=== PATIENT | male | born 1945 | race Caucasian/White ===

== ENCOUNTER 2018-06-16 13:00 | Day surgery (SDC) | payer MEDICARE, OTHER ==
[~2018-06-16] VITALS: Ht 177.8 cm; Wt 103.9 kg
[~2018-06-16 13:00] MED LIST: CEPH500 PO; Calci-Mix500 MG PO; ENAL20 PO; Humalog Mi100 UNIT/5 INJ; Hytrin2 MG PO; INSLI75/25 SC; METF500 PO; Multivitamin1 EAC1 PO; OXYACE5T PO; Omeprazole20 M1 PO; PIOG45 PO; ROSI4 PO; ROSU10TA PO; RXSULTRIDS PO; SULTRIDS PO; TERA5 PO
== END 2018-06-16 15:07 | disposition home or self-care (01) ==
LOC: ORSCSDS 13:00
PROVIDERS: Surgery
PROC: 0DBN8ZX Excision of Sigmoid Colon, Via Natural or Artificial Opening Endoscopic, Diagnostic (ICD-10-PCS; principal; 2018-06-16 14:15)
PROC: 0DBL8ZX Excision of Transverse Colon, Via Natural or Artificial Opening Endoscopic, Diagnostic (ICD-10-PCS; principal; 2018-06-16 14:15)
PROC: 0DBH8ZX Excision of Cecum, Via Natural or Artificial Opening Endoscopic, Diagnostic (ICD-10-PCS; principal; 2018-06-16 14:15)
DX: Z12.11 Encounter for screening for malignant neoplasm of colon (principal); K63.5 Polyp of colon; Z86.010 Personal history of colon polyps; E11.9 Type 2 diabetes mellitus without complications; I10 Essential (primary) hypertension; E78.00 Pure hypercholesterolemia, unspecified; N40.0 Benign prostatic hyperplasia without lower urinary tract symptoms; Z79.4 Long term (current) use of insulin; Z79.899 Other long term (current) drug therapy
CPT/HCPCS: 82947; 88305; J7120

== ENCOUNTER 2023-01-21 13:20 | Inpatient (IN) | payer MEDICARE, OTHER ==
[2023-01-21] VITALS (17 sets, daily range): BP systolic 113–151; BP diastolic 55–98
[~2023-01-21] VITALS: Ht 177.8 cm; Wt 70.3 kg
[~2023-01-21 13:20] MED LIST changes: +BASAGLAR K100 UNIT/3 SC; +ENAL10 PO; -ENAL20 PO; -Humalog Mi100 UNIT/5 INJ
[2023-01-21 14:17] LABS: Prothrombin Time Results 10.5 Sec (9.7-11.5)
[2023-01-21 14:21] LABS: BASOPHILS ABSOLUTE AUTO 0.06 K/mm3 (0.00-0.23); BASOPHILS PERCENT AUTO 0 % (0-2); EOSINOPHILS ABSOLUTE AUTO 0.01 K/mm3 (0.00-0.68); EOSINOPHILS PERCENT AUTO 0 % (0-6); Hematocrit 27.8 % (37.0-53.0); Hemoglobin 8.3 g/dL (13.5-17.5); IMMATURE GRAN ABSOLUTE AUTO 0.09 K/mm3 (0.00-0.10); IMMATURE GRAN PERCENT AUTO 1 % (0-1); LYMPHOCYTES ABSOLUTE AUTO 2.35 K/mm3 (0.84-5.20); LYMPHOCYTES PERCENT AUTO 14 % (21-46); MONOCYTES ABSOLUTE AUTO 0.85 K/mm3 (0.16-1.47); MONOCYTES PERCENT AUTO 5 % (4-13); Mean Corpuscular HGB 29.5 pg (26.0-34.0); Mean Corpuscular HGB Conc 29.9 g/dL (31.5-36.5); Mean Corpuscular Volume 99 fL (80-100); Mean Platelet Volume 10.5 fL (9.1-12.4); NEUTROPHILS ABSOLUTE AUTO 14.08 K/mm3 (1.96-9.15); NEUTROPHILS PERCENT AUTO 81 % (41-73); Platelet Count 274 K/mm3 (150-400); RDW Coefficient Variation 13.8 % (11.7-14.2); RDW Standard Deviation 50.4 fL (35.1-46.3); Red Blood Cell Count 2.81 M/mm3 (4.30-5.90); White Blood Cell Count 17.44 K/mm3 (4.00-11.30)
[2023-01-21 14:49] LABS: Albumin, Blood 3.4 g/dL (3.4-5.0); Albumin/Globulin Ratio 1.1 (0.8-1.8); Bilirubin, Total 0.5 mg/dL (0.1-1.0); Bun/Creatinine Ratio 14.8 (12.0-20.0); Calcium, Blood 9.3 mg/dL (8.5-10.1); Creatinine, Blood 12.4 mg/dL (0.60-1.20); Globulin, Blood 3.2 g/dL (2.2-4.0); Potassium, Blood 9.6 mmol/L (3.5-5.5); Total Protein, Blood 6.6 g/dL (6.4-8.2)
[2023-01-21 15:43] LABS: Bun/Creatinine Ratio 13.7 (12.0-20.0); Calcium, Blood 9.3 mg/dL (8.5-10.1); Creatinine, Blood 12.3 mg/dL (0.60-1.20); Potassium, Blood 9.5 mmol/L (3.5-5.5)
[2023-01-21 18:01] LABS: Albumin, Blood 2.7 g/dL (3.4-5.0); Anion Gap 14 mmol/L (6-16); Blood Urea Nitrogen 148 mg/dL (8-24); Bun/Creatinine Ratio 13.7 (12.0-20.0); CO2, Blood 11 mmol/L (21-32); Calcium, Blood 9.1 mg/dL (8.5-10.1); Chloride, Blood 122 mmol/L (98-108); Glomerular Filtration Rate 4 (60-); Glucose, Blood 225 mg/dL (70-99); Phosphorus, Blood 4.1 mg/dL (2.5-4.9); Sodium, Blood 147 mmol/L (136-145)
--- NOTE | 2023-01-21 18:50 | NUR ---
DR. ROSA INFORMED OF LAB RESULTS; MAG OF 9.3, POTASSIUM OF 7.0 AND CREATININE OF 10.8. INFORMED THAT PATIENT VOIDED 50 MLS OF URINE AND THEN BLADDER SCANNED. INFORMED BLADDER SCAN SHOWED 312 MLS OF URINE IN BLADDER. DR. ROSA STATED TO WAIT ON PLACING ADAMS AND TO DO BLADDER SCAN AT NEXT LABS.
--- NOTE | 2023-01-21 19:32 | NUR ---
SHIFT SUMMARY PATIENT ARRIVED TO UNIT AROUND 1800. PATIENT ALERT AND ORIENTED TO ALL QUESTIONS EXCEPT TO DATE. PATIENT IS FORGETFUL AND TRIES TO GET OUT OF BED WITHOUT USING CALL LIGHT OR CALLING FOR HELP. BED ALARM ON. PATIENT WEAK AND UNSTEADY ON FEET WITH STANDING UP. PATIENT AFEBRILE. PATIENT SATTING 90% AND GREATER ON RA. BP AND HR REMAINED STABLE. PATIENT ATE CUSTARD AND FRUIT CUP OFF DINNER TRAY. NO BM THIS SHIFT. PATIENT HAS HAD 2 SMALL VOIDS THIS SHIFT. PATIENT NEEDS ASSISTANCE WITH URINAL. 1" LACERATION TO BACK OF HEAD. SMALL PRESSURE ULCER NOTED TO COCCYX. SODIUM BICARB INFUSING AT 150 MLS/ HOUR. AND SON CAME TO VISIT. BED LOW, CALL LIGHT IN REACH, BED ALARM ON. REPORT GIVEN TO ASSUMING SPECIAL EDUCATION CLASSROOM AIDE NURSE.
--- NOTE | 2023-01-21 21:06 | NUR ---
PATIENT RESTLESS AND CONFUSED. NEEDING FREQUENT REMINDERS TO USE CALL LIGHT FOR HELP WITH URINAL. PATIENT HAVING FREQUENT REQUEST FOR URINAL, BLADDER SCAN DONE SHOWING 362 URINE AFTER VOIDING 100 CC URINE. DRESSING TO HEAD WITH SMALL AMT OF DRIED BLOOD. ORIENT TO SELF AND HOSPITAL ONLY. TREMOR SEEN WITH ACTIVITY. PATIENT VERBALIZED FEELING COLD
[2023-01-21 21:54] LABS: Albumin, Blood 2.8 g/dL (3.4-5.0); Anion Gap 11 mmol/L (6-16); Blood Urea Nitrogen 168 mg/dL (8-24); Bun/Creatinine Ratio 14.5 (12.0-20.0); CO2, Blood 17 mmol/L (21-32); Calcium, Blood 8.9 mg/dL (8.5-10.1); Chloride, Blood 123 mmol/L (98-108); Glomerular Filtration Rate 4 (60-); Glucose, Blood 268 mg/dL (70-99); Phosphorus, Blood 4.5 mg/dL (2.5-4.9); Potassium, Blood 6.4 mmol/L (3.5-5.5); Sodium, Blood 151 mmol/L (136-145)
--- NOTE | 2023-01-21 22:12 | NUR ---
DOCTOR MOE NOTIFIED OF REPEAT LABS AND RESULT OF POST VOID BLADDER SCAN OF 296. SEE NEW ORDERS
[2023-01-21 23:43] LABS: Source, Urine Foley catheter
[2023-01-21 23:48] LABS: Bilirubin, Urine Neg (Neg); Blood, Urine 2+ (Neg); Glucose Qualitative, Urine 3+ (Neg); Ketones, Urine Neg (Neg); Leukocyte Esterase, Urine Neg (Neg); Nitrite, Urine Neg (Neg); Protein, Urine 2+ (Neg); Urobilinogen, Urine NORM (Normal)
[2023-01-21 23:50] LABS: Appearance, Urine Clear (Clear); Color, Urine Pale Yellow (P-Yellow)
[2023-01-22] VITALS (45 sets, daily range): BP systolic 85–152; BP diastolic 40–92
[2023-01-22 00:10] LABS: Bacteria Not Seen /hpf; Red Blood Cells, Urine 0-2 /hpf (0-2); Squamous Epithelial Cells Not Seen /hpf (Few); White Blood Cells, Urine 0-2 /hpf (0-5)
[2023-01-22 04:06] LABS: BASOPHILS ABSOLUTE AUTO 0.02 K/mm3 (0.00-0.23); BASOPHILS PERCENT AUTO 0 % (0-2); EOSINOPHILS ABSOLUTE AUTO 0.02 K/mm3 (0.00-0.68); EOSINOPHILS PERCENT AUTO 0 % (0-6); Hemoglobin 7.5 g/dL (13.5-17.5); IMMATURE GRAN ABSOLUTE AUTO 0.06 K/mm3 (0.00-0.10); IMMATURE GRAN PERCENT AUTO 1 % (0-1); LYMPHOCYTES PERCENT AUTO 15 % (21-46); MONOCYTES PERCENT AUTO 9 % (4-13); Mean Corpuscular HGB 29.3 pg (26.0-34.0); Mean Corpuscular HGB Conc 32.6 g/dL (31.5-36.5); Mean Platelet Volume 10.4 fL (9.1-12.4); NEUTROPHILS ABSOLUTE AUTO 7.66 K/mm3 (1.96-9.15); NEUTROPHILS PERCENT AUTO 75 % (41-73); Platelet Count 227 K/mm3 (150-400); RDW Coefficient Variation 13.6 % (11.7-14.2); RDW Standard Deviation 45.1 fL (35.1-46.3); Red Blood Cell Count 2.56 M/mm3 (4.30-5.90); White Blood Cell Count 10.16 K/mm3 (4.00-11.30)
[2023-01-22 04:09] LABS: Mean Corpuscular Volume 90 fL (80-100)
[2023-01-22 04:43] LABS: Uric Acid, Blood 7.1 mg/dL (3.5-7.2)
[2023-01-22 04:52] LABS: Albumin, Blood 2.6 g/dL (3.4-5.0); Anion Gap 11 mmol/L (6-16); Blood Urea Nitrogen 142 mg/dL (8-24); Bun/Creatinine Ratio 12.7 (12.0-20.0); CO2, Blood 22 mmol/L (21-32); Calcium, Blood 8.3 mg/dL (8.5-10.1); Chloride, Blood 118 mmol/L (98-108); Glomerular Filtration Rate 4 (60-); Glucose, Blood 272 mg/dL (70-99); Magnesium, Blood 2.3 mg/dL (1.6-2.4); Phosphorus, Blood 4.2 mg/dL (2.5-4.9); Potassium, Blood 5.1 mmol/L (3.5-5.5); Sodium, Blood 151 mmol/L (136-145)
--- NOTE | 2023-01-22 05:24 | NUR ---
DOCTOR MOE NOTIFIED OF AM LABS, SEE NEW ORDERS. IV FLUIDS ADJUSTED AND PLAN ON REPEAT LABS AT NOON TODAY
--- NOTE | 2023-01-22 06:48 | NUR ---
SUMMARY PATIENT CONFUSED T/O NIGHT. VERY FORGETFUL AND IMPULSIVE T/O NIGHT. 1:1 SITTER AT ROOM THIS MORNING TO HELP KEEP PATIENT FROM PULLING AT LINES AND CORDS AND ATTEMPTING TO GET OUT OF BED WITHOUT ASSISTANCE. ADAMS REMAINS IN PLACE DRAINING CLEAR YELLOW URINE 24 HR URINE IN PROGRESS. IV FLUID ORDERS PER DOCTOR MOE. INCONT OF BLACK LIQUID STOOL DURING THE NIGHT.
--- NOTE | 2023-01-22 08:00 | NUR ---
INITIAL ASSESSMENT PATIENT ORIENTED ONLY TO SELF AND FAMILY THIS AM. FLAT AFFECT NOTED. PATIENT VERY FORGETFUL. SITTER PRESENT PATIENT TRIES TO CLIMB OUT OF BED AND DOES NOT REMEMBER TO CALL FOR HELP. PATIENT WEAK BUT ABLE TO MOVE ALL EXTREMITIES. PATIENT AFEBRILE. NO COMPLAINTS OF PAIN THIS AM. PATIENT SATTING 90% AND GREATER ON RA. PATIENT IN SR, HR IN THE 60S. SBP LOW 100S TO 120S. PATIENT HAS HAD POOR APPETITE. MANAGER OF [employer] RN REPORTS 2 LIQUID, BLACK STOOLS ON MANAGER OF [employer] [facility] [employer]. ADAMS IN PLACE FOR URGENCY AND RETENTION; YELLOW URINE DRAINING. 1" LACERATION TO BACK OF HEAD. PRESSURE ULCER TO COCCYX; MEPILEX IN PLACE. SKIN PALLOR. D5W INFUSING AT 50 MLS/ HOUR AND SODIUM BICARB INFUSING AT 150 MLS/ HOUR. BED LOW, CALL LIGHT IN REACH. WILL CONTINUE TO MONITOR PATIENT FREQUENTLY THROUGHOUT SHIFT.
--- NOTE | 2023-01-22 11:24 | NUR ---
DR. CASTELLANOS CALLED AND NOTIFIED THAT PATIENT'S MAPS 57 TO 64. INFORMED THAT PATIENT ON FLUIDS AT 200 MLS/ HOUR. INFORMED THAT PATIENT HAD 2 LIQUID BLACK BMS ON SHOVEL LOADER OPERATOR. INFORMED THAT STATES PATIENT TAKES IRON AT HOME. INFORMED THAT HEMOGLOBIN DROPPED FROM 8.[address] CASTELLANOS CAME TO SEE PATIENT. 1 DOSE OF MIDODRINE ORDERED.
[2023-01-22 12:52] LABS: Albumin, Blood 2.8 g/dL (3.4-5.0); Anion Gap 12 mmol/L (6-16); Blood Urea Nitrogen 132 mg/dL (8-24); Bun/Creatinine Ratio 12.2 (12.0-20.0); CO2, Blood 23 mmol/L (21-32); Chloride, Blood 109 mmol/L (98-108); Glomerular Filtration Rate 4 (60-); Glucose, Blood 179 mg/dL (70-99); Phosphorus, Blood 4.1 mg/dL (2.5-4.9); Potassium, Blood 4.2 mmol/L (3.5-5.5); Sodium, Blood 144 mmol/L (136-145)
--- NOTE | 2023-01-22 12:57 | NUR ---
PATIENT AFEBRILE. HR 60S TO 80S. SBP NOW IN THE 120S AFTER PATIENT GIVEN OT DOSE OF MIDODRINE. SBP WAS IN 80S AND MAP 57 TO 64. PATIENT IS NOW ORIENTED TO PLACE AND NURSE. NO OTHER ACUTE CHANGES TO NOTE ON AT THIS TIME. NO COMPLAINTS OF PAIN. WILL CONTINUE TO MONITOR.
--- NOTE | 2023-01-22 15:43 | NUR ---
IGNITION RISK ASSESSED. PATIENT STATED THAT HE DOES NOT SMOKE AND WILL NOT LIGHT UP IN ROOM.
--- NOTE | 2023-01-22 16:00 | NUR ---
PATIENT AFEBRILE. PATIENT IN SB, HR 40S TO 50S. SBP 1-TEENS TO 120S. NO CHANGES IN MENTATION SINCE 1200 ASSESSMENT. BED BATH PERFORMED. PATIENT HAS NO COMPLAINTS AT THIS TIME. WILL CONTINUE TO MONITOR.
--- NOTE | 2023-01-22 16:23 | NUR ---
DR. CASTELLANOS AWARE OF HR 40S TO 50S. NO ORDERS OBTAINED AT THIS TIME.
[2023-01-22 18:15] LABS: Albumin, Blood 2.3 g/dL (3.4-5.0); Anion Gap 10 mmol/L (6-16); Blood Urea Nitrogen 132 mg/dL (8-24); Bun/Creatinine Ratio 13.3 (12.0-20.0); CO2, Blood 24 mmol/L (21-32); Calcium, Blood 7.4 mg/dL (8.5-10.1); Chloride, Blood 108 mmol/L (98-108); Creatinine, Blood 9.89 mg/dL (0.60-1.20); Glomerular Filtration Rate 5 (60-); Glucose, Blood 239 mg/dL (70-99); Potassium, Blood 4.5 mmol/L (3.5-5.5); Sodium, Blood 142 mmol/L (136-145)
--- NOTE | 2023-01-22 18:47 | NUR ---
SHIFT SUMMARY PATIENT CONFUSED TODAY; CONFUSION WORSE IN AM. PATIENT FORGETFUL BUT MUCH LESS RESTLESS THAN LAST NIGHT. WITH SITTER PRESENT, PATIENT HAS NOT BEEN PULLING AT EQUIPMENT OR TRYING TO CRAWL OUT OF BED. PATIENT WEAK BUT ABLE TO MOVE ALL EXTREMITIES. PT WORKED WITH PATIENT TODAY AND HELPED TO CHAIR. PATIENT REMAINED AFEBRILE. PATIENT HAD NO COMPLAINTS OF PAIN THIS SHIFT. PATIENT REMAINED SATTING 90% AND GREATER ON RA. PATIENT SB TO SR, HR 40S TO 80S. SBP 80S TO 130S. ONE DOSE MIDODRINE GIVEN AND THEN SCHEDULED Q8H FOR SOFT BPS. PATIENT HAS POOR APPETITE. NO BM THIS SHIFT. 540 MLS OF YELLOW COLORED URINE OUT FROM ADAMS. 24 HOUR URINE COLLECTION STILL IN PROGRESS. NO CHANGES TO SKIN NOTED. COMPLETE BED BATH GIVEN. D5W INFUSING AT 100 MLS/ HOUR. BLOOD SUGARS RANGED FROM 179 TO 289. FAMILY IN TO VISIT TODAY. FORGOT PATIENT'S MED LIST TODAY SO IS SUPPOSED TO BRING TOMORROW TO COMPLETE MED REC. BED LOW, CALL LIGHT IN REACH. REPORT WILL BE GIVEN TO ASSUMING CIRCUIT BREAKER ASSEMBLER NURSE SHORTLY.
--- NOTE | 2023-01-22 20:52 | NUR ---
ASSUMPTION OF CARE/ASSESSMENT: ASSUMED CARE OF PT AT 1900. PT A&O X 1; WHEN PT IS ASKED ORIENTING QUESTIONS HE REPLIES WITH "I JUST DON'T KNOW." PT IS ONLY ABLE TO STATE NAME/ AT THIS TIME. PT FOLLOWING COMMANDS AND IS HELPING WITH TURNS AT THIS TIME. PT CURRENTLY SR ON MONITOR WITH HR 60'S, SBP 130'S AND DENIES CHEST PAIN AT THIS TIME. PT RA WITH SPO2 98<, AND LUNGS ARE CLEAR THROUGHOUT. PT DENIES SOB AT THIS TIME. HYPERACTIVE BOWEL SOUNDS IN ALL QUADRANTS; ABD SOFT, NON-TENDER. PT CONTINENT AND USING BEDPAN FOR ELIMINATION NEEDS. PT PASSED LARGE BM THAT WAS BLACK. PT HAS ADAMS IN [place] AND DRAINING TO GRAVITY; URINE LIGHT YELLOW AND CLEAR. 24-HOUR URINE COLLECTION IN PROCESS THAT WILL BE COMPLETED TONIGHT. BED LOWERED, CALL LIGHT IN REACH, WILL CONTINUE TO MONITOR.
[2023-01-22 22:51] LABS: Protein, Urine Quantitative 55.7 mg/dL (0.0-11.9)
[2023-01-23] VITALS (29 sets, daily range): BP systolic 100–143; BP diastolic 33–82
[2023-01-23 04:25] LABS: Hematocrit 19.9 % (37.0-53.0); Hemoglobin 6.6 g/dL (13.5-17.5)
[2023-01-23 05:09] LABS: Magnesium, Blood 1.8 mg/dL (1.6-2.4)
[2023-01-23 05:31] LABS: Albumin, Blood 2.2 g/dL (3.4-5.0); Anion Gap 11 mmol/L (6-16); Blood Urea Nitrogen 130 mg/dL (8-24); Bun/Creatinine Ratio 13.3 (12.0-20.0); CO2, Blood 24 mmol/L (21-32); Chloride, Blood 106 mmol/L (98-108); Creatinine, Blood 9.77 mg/dL (0.60-1.20); Glomerular Filtration Rate 5 (60-); Glucose, Blood 170 mg/dL (70-99); Phosphorus, Blood 5.3 mg/dL (2.5-4.9); Potassium, Blood 4.2 mmol/L (3.5-5.5); Sodium, Blood 141 mmol/L (136-145)
--- NOTE | 2023-01-23 06:18 | NUR ---
SHIFT SUMMARY: PT SLEPT FOR MAJORITY OF SHIFT, VSS THROUGHOUT THE NIGHT. PT REMAINS INTERMITTENLY FORGETFUL BUT ONCE REMINDED HE IS REDIRECTED AND COOPERATIVE WITH CARE/FOLLOWING COMMANDS. PT HAS 450 ML URINE OUTPUT THIS SHIFT. D5 INFUSING AT 75 MLS/HR. PT AM LABS THIS MORNING WITH HBG @ 6.6; DR HEREDIA CALLED AND UPDATED, NEW ORDERS RECIEVED. TYPE AND SCREEN SENT OFF, WAITING ON BLOOD. PT HAD ONE, LARGE BLACK BOWEL MOVEMENT THAT WAS FORMED. BED LOWERED, CALL LIGHT IN REACH, WILL CONTINUE TO MONITOR UNTIL ONCOMING RN ARRIVES.
--- NOTE | 2023-01-23 07:00 | NUR ---
ASSUME CARE: I have assumed care of this patient.
[2023-01-23 09:48] LABS: Hematocrit 22.6 % (37.0-53.0); Hemoglobin 7.4 g/dL (13.5-17.5)
[2023-01-23 15:49] LABS: Albumin, Blood 2.5 g/dL (3.4-5.0); Anion Gap 12 mmol/L (6-16); Blood Urea Nitrogen 119 mg/dL (8-24); Bun/Creatinine Ratio 12.3 (12.0-20.0); CO2, Blood 23 mmol/L (21-32); Calcium, Blood 7.2 mg/dL (8.5-10.1); Chloride, Blood 102 mmol/L (98-108); Glomerular Filtration Rate 5 (60-); Glucose, Blood 227 mg/dL (70-99); Phosphorus, Blood 4.9 mg/dL (2.5-4.9); Potassium, Blood 4.4 mmol/L (3.5-5.5); Sodium, Blood 137 mmol/L (136-145)
--- NOTE | 2023-01-23 16:56 | NUR ---
PROVIDER: Dr Pierre notified of pt's HR intermittently in the low 40's. Pt is asymptomatic; he denies any dizziness or SOB. RN instructed to continue to monitor.
--- NOTE | 2023-01-23 18:35 | NUR ---
SHIFT SUMMARY: Pt worked with both PT and OT today. He was up in chair for several hours. Arpit is still only oriented to himself. IVF changed per EMAR. Jerrica remains in place for retention; 490 out this shift.
--- NOTE | 2023-01-23 20:14 | NUR ---
ASSUMPTION OF CARE/ASSESSMENT: ASSUMED CARE AT 1900. PT IS IN BED ASLEEP BUT WAKES EASILY TO VERBAL STIMULI. PT ALERT AND ORIENTED TO SELF AND THINKS THAT HE IS IN [place], PT CANNOT RECALL ANY OTHER INFORMATION FOR ORIENTING QUESTIONS. PT CURRENTLY ON RA WITH SPO2 94<. LUNGS CLEAR WITH DIM BASES AND NO C/O SOB. PT SB-SR ON MONITOR, HR 40-60'S AND SBP 110'S; PT DENIES CHEST PAIN AT THIS TIME. HYPERACTIVE BOWEL SOUNDS, ABD SOFT/NON-TENDER AND TOLERATING PO INTAKE. PT HAS ADAMS IN PLACE THAT IS DRAINING TO GRAVITY; URINE CLEAR AND LIGHT YELLOW. PG TO JAIRO THAT IS INFUSING NS @ 75 MLS/HR. PT HAS 1:1 SITTER OUTSIDE DOOR FOR SAFETY R/T IMPULSIVENESS AND OOB UNSAFELY. PT EDUCATED REGARDING IGNITION SOURCES AND FIRE RISK. BED LOWERED, CALL LIGHT IN REACH, WILL CONTINUE TO MONITOR UNTIL ONCOMING RN ARRIVES.
[2023-01-24] VITALS (11 sets, daily range): BP systolic 102–150; BP diastolic 38–84
[2023-01-24 04:55] LABS: Hematocrit 23.7 % (37.0-53.0); Hemoglobin 7.8 g/dL (13.5-17.5)
[2023-01-24 05:38] LABS: Albumin, Blood 2.1 g/dL (3.4-5.0); Anion Gap 11 mmol/L (6-16); Blood Urea Nitrogen 122 mg/dL (8-24); Bun/Creatinine Ratio 12.9 (12.0-20.0); CO2, Blood 21 mmol/L (21-32); Calcium, Blood 7.1 mg/dL (8.5-10.1); Chloride, Blood 107 mmol/L (98-108); Creatinine, Blood 9.46 mg/dL (0.60-1.20); Glomerular Filtration Rate 5 (60-); Glucose, Blood 110 mg/dL (70-99); Phosphorus, Blood 5.9 mg/dL (2.5-4.9); Potassium, Blood 4.5 mmol/L (3.5-5.5); Sodium, Blood 139 mmol/L (136-145)
--- NOTE | 2023-01-24 06:17 | NUR ---
SHIFT SUMMARY: NO ACUTE CHANGES OVERNIGHT, VSS THROUGHUOT THE SHIFT. PT SLEPT THROUGH THE NIGHT. URINE OUTPUT THIS SHIFT AT 650 MLS. HOURLY ROUNDING FOR FIRE RISK COMPLETED. BED LOWERED, CALL LIGHT IN REACH, WILL CONTINUE TO MONITOR UNTIL ONCOMING RN ARRIVES.
--- NOTE | 2023-01-24 18:45 | NUR ---
SHIFT SUMMARY S/P HYPERKALEMIA AND MULTIPLE FALLS AT HOME, A/O X1 (SELF) BUT IS ABLE FOLLOW REDIRECTION WITH VERBAL CUES, PLEASANTLY CONFUSED AND OVER ESTIMARES HIS OWN ABILITIES BUT AGAIN DOES WELL WITH VERBAL CUES/REDIRECTION, ADAMS IN PLACE AND DRAINING TO GRAVITY, HE WORKED WITH PHYSICLA THERAPY TODAY AND DID WELL BUT DOES NEED TO USE A WALKER WHEN HE GETS UP ALTHOUGH HE WILL DENY NEEDING ONE. HE HAD A SHORT RUN OF VTACH (12 BEATS) BUT WAS ASYMPTOMATIC FOR THE DURATION AND AFTERWARDS. NO OTHER EVENTS THIS SHIFT, EDUCATED ON IGNITION SOURCES AND INCREASED RISK OF FIRE/CARDENAS R/T OXYGEN IN THE ROOM EVEN THOUGH IT IS NOT IN USE. REPORT GIVEN TO OLU HECK.
--- NOTE | 2023-01-24 21:09 | NUR ---
SAFETY & EDUCATION PT & FAMILY EDUCATED RE: IGINITION SOURCES AND RISK OF INJURY WHILE OXYGEN IS IN USE. PT DENIES SMOKING & PT AND FAMILY VERBALIZE UNDERSTANDING.
[2023-01-25 03:13] VITALS: BP 141/50
[2023-01-25 03:49] LABS: Hematocrit 23.9 % (37.0-53.0); Hemoglobin 7.8 g/dL (13.5-17.5)
[2023-01-25 04:17] LABS: Magnesium, Blood 1.9 mg/dL (1.6-2.4)
[2023-01-25 04:20] LABS: Albumin, Blood 2.2 g/dL (3.4-5.0); Anion Gap 12 mmol/L (6-16); Blood Urea Nitrogen 123 mg/dL (8-24); Bun/Creatinine Ratio 13.4 (12.0-20.0); CO2, Blood 20 mmol/L (21-32); Calcium, Blood 6.8 mg/dL (8.5-10.1); Chloride, Blood 109 mmol/L (98-108); Creatinine, Blood 9.21 mg/dL (0.60-1.20); Glomerular Filtration Rate 5 (60-); Glucose, Blood 129 mg/dL (70-99); Phosphorus, Blood 6.1 mg/dL (2.5-4.9); Potassium, Blood 4.6 mmol/L (3.5-5.5); Sodium, Blood 141 mmol/L (136-145)
--- NOTE | 2023-01-25 04:33 | NUR ---
SHIFT SUMMARY SEE PREVIOUS NOTE. PT A&Ox3, UNSURE OF DATE. COMMUNICATES NEEDS APPROPRIATELY, DOES NOT USE CALL LIGHT TO INITIATE NEEDS. BED ALARM ON. BP STABLE, SINUS 60's, DENIES CP/PRESSURE. SpO2> 92% RA, DENIES SOB. ADAMS CATH REMAINS PATENT, DRAINING CLEAR YELLOW URINE TO GRAVITY. NO OTHER EVENTS, WILL REPORT TO ONCOMING RN.
[2023-01-25 08:50] VITALS: BP 126/49
[2023-01-25 11:12] VITALS: BP 121/59
[2023-01-25 16:38] VITALS: BP 119/59
--- NOTE | 2023-01-25 18:11 | NUR ---
ASSUMED CARE OF PT AT 0700 THIS AM. IGNITION RISK ASSESSMENT COMPLETED WITH PT/FAMILY AT BEDSIDE. PT/FAMILY DENY ANY SOURCES OF IGNITION SUCH LIGHTERS AND VERBALIZE UNDERSTANDING OF FIRE RISK. PT DOES NOT SMOKE AND IS NOT ON O2 AT THIS TIME. NO ACUTE EVENTS T/O THE SHIFT. VSS. PT DENIES PAIN, DENIES CHEST PAIN. ADAMS CATHETER REMOVED THIS AFTERNOON. PT VERBALIZES UNDERSTANDING TO USE URINAL FOR ACCURATE I&O MONITORING AND TO CALL STAFF IF HE NEEDS TO GET OOB. BED ALARM ON FOR SAFETY. CALL LIGHT IN REACH. WILL CONTINUE TO MONITOR AND GIVE REPORT TO NOC SHIFT RN.
[2023-01-25 20:00] VITALS: BP 139/64
[2023-01-26] VITALS: BP 126/63
[2023-01-26 04:00] VITALS: BP 127/58
[2023-01-26 05:18] LABS: Hematocrit 21.7 % (37.0-53.0); Hemoglobin 7.2 g/dL (13.5-17.5)
--- NOTE | 2023-01-26 06:09 | NUR ---
SHIFT SUMMARY PT A&O X1; ABLE TO IDENTIFY PERSON AND THAT HE IS "IN A CARE FACILITY" BUT UNABLE TO IDENTIFY WHERE AND WHICH TOWN HE IS IN. PT UNABLE TO RECALL DATE/TIME, SITUATION OR PRESIDENT. PT STATES "I DON'T KNOW" OR GUESSES AT ORIENTATION QUESTIONS. PT UNABLE TO STATE WHETHER HE IS OR NOT, AND STATES HE LIVES WITH "HIS FOLKS". PT EASILY REDIRECTED AND REORIENTED. PT COOPERTIVE WITH CARE. VSS THROUGHOUT SHIFT. DENIES GENERAL PAIN, CP OR PRESSURE. DENIES SOB. DENIES N/V/D. NO BM THIS SHIFT. PT ON RA, SPO2 93 -95%. PT VERY WEAK, UNABLE TO LIFT HIS LEGS, NEEDING ASSISTANCE TO SIT AT EOB AND USE URINAL. PT UNABLE TO KEEP SELF UPRIGHT FOR LONG TIME, PT SITS AT EOB AND THEN LEANS BACK D/T WEAKNESS. PT INTERMITTENTLY INCONTINENT, ATTENDS IN PLACE AND CHANGED PRN. REPOSITIONED Q2 OR NEEDED. NS INFUSING PER EMAR IN PG IN JAIRO. PT TAKING IN LITTLE PO; PT ENCOURAGED TO DRINK WATER. PT OFTEN DECLINES. PT RESTED MOST OF THE SHIFT. BED ALARM ON, PT NOT USING CALL LIGHT WHEN HAS NEEDS. WILL UPDATE ONCOMING RN
[2023-01-26 06:23] LABS: Magnesium, Blood 1.7 mg/dL (1.6-2.4)
[2023-01-26 06:47] LABS: Anion Gap 13 mmol/L (6-16); Blood Urea Nitrogen 126 mg/dL (8-24); Bun/Creatinine Ratio 13.6 (12.0-20.0); CO2, Blood 18 mmol/L (21-32); Calcium, Blood 6.7 mg/dL (8.5-10.1); Chloride, Blood 113 mmol/L (98-108); Creatinine, Blood 9.26 mg/dL (0.60-1.20); Glomerular Filtration Rate 5 (60-); Glucose, Blood 135 mg/dL (70-99); Phosphorus, Blood 5.5 mg/dL (2.5-4.9); Potassium, Blood 4.8 mmol/L (3.5-5.5); Sodium, Blood 144 mmol/L (136-145)
[2023-01-26 08:15] VITALS: BP 121/62
--- NOTE | 2023-01-26 10:14 | NUR ---
ASSUMED CARE OF PT AT 0700 THIS AM. PT RESTING QUIETLY IN BED, NO DISTRESS NOTED. EASILY AWOKEN TO NAME, IGNITION ASSESSMENT PERFORMED, PT DENIES ANY SOURCES OF FIRE. CALL LIGHT IN REACH, BED ALARM ON FOR SAFETY, WILL CONTINUE TO MONITOR AND CARE FOR PT.
[2023-01-26 16:29] VITALS: BP 140/78
--- NOTE | 2023-01-26 18:00 | NUR ---
NO ACUTE CHANGES T/O THE DAY. PT IS NOW MEDICAL STATUS W/O TELE. PT OOB TO CHAIR FOR MEALS TODAY, TOLERATED WELL. ORDERS RECEIVED FOR 24HR URINE FROM DR ROSA, BUT SO FAR TODAY PT HAS BEEN INCONTINENT OF URINE. HE IS PLESANT AND COOPERATIVE, BUT SOMEWHAT CONFUSED, DOES NOT ALWAYS USE CALL LIGHT FOR NEEDS. BED ALARM ON FOR SAFETY. SEE DOCUMENTED VS AND ASSESSMENT. WILL CONTINUE TO MONITOR AND GIVE REPORT TO NOC SHIFT RN.
[2023-01-26 22:37] VITALS: BP 123/66
[2023-01-27 03:00] VITALS: BP 143/74
[2023-01-27 04:58] LABS: Hematocrit 22.4 % (37.0-53.0); Hemoglobin 7.3 g/dL (13.5-17.5)
[2023-01-27 05:25] LABS: Magnesium, Blood 1.6 mg/dL (1.6-2.4)
[2023-01-27 05:59] LABS: Albumin, Blood 1.9 g/dL (3.4-5.0); Anion Gap 11 mmol/L (6-16); Blood Urea Nitrogen 115 mg/dL (8-24); Bun/Creatinine Ratio 13.5 (12.0-20.0); CO2, Blood 24 mmol/L (21-32); Calcium, Blood 6.6 mg/dL (8.5-10.1); Chloride, Blood 109 mmol/L (98-108); Creatinine, Blood 8.54 mg/dL (0.60-1.20); Glomerular Filtration Rate 6 (60-); Glucose, Blood 158 mg/dL (70-99); Phosphorus, Blood 5.6 mg/dL (2.5-4.9); Potassium, Blood 4.3 mmol/L (3.5-5.5); Sodium, Blood 144 mmol/L (136-145)
--- NOTE | 2023-01-27 05:59 | NUR ---
SHIFT SUMMARY PT IS A&O TO SELF, BEDREST DUE TO WEAKNESS, PT HAS BEEN INCONTINENT THIS SHIFT UNABLE TO COLLECT URINE FOR 24 HOUR COLLECTION, CAN BE IMPULSIVE AT TIMES TRYING TO OOB UNSAFELY, PT IS PLEASANT AND COOPERATIVE WITH CARE, NO COMPLAINTS OF PAIN OR DISCOMFORT OVERNIGHT, FIRE SAFETY EDUCATION IN THE HOSPITAL PROVIDED, CONTINUE POC
[2023-01-27 07:37] VITALS: BP 124/57
--- NOTE | 2023-01-27 07:43 | NUR ---
AM Note Pt alert to self only, unable to answer date or place, pt states Su is president. Pt calm and cooperative with care. Pt denies pain, chest pain/pressure, sob, nausea, dizziness and numb/tingling. Spo2 >90% on ra, breathing even and unlabored, ls clear, t/o. Abd soft, tender on right side and hypoactive. Bp and HR stable, other vss. BLE edema noted trace at this time. Will continue to monitor.
[2023-01-27 17:20] VITALS: BP 115/63
--- NOTE | 2023-01-27 17:40 | NUR ---
Shift Summary No acute chagnes t/o shift. Bedalarm/chair alarm in place, pt got up from chair this am and back to bed, pt ripped iv tubing in process. VSS. No other acute changes noted. Will continue to monitor.
--- NOTE | 2023-01-28 03:49 | NUR ---
SHIFT SUMMARY. PT ARRIVED ON UNIT VERY EARLY IN SHIFT, NOT LONG AFTER SHIFT CHANGE. PT IS AOX2, PLEASANT, COOPERATIVE WITH CARE. CONDOM CATHETER IN PLACE AND HAS BEEN DRAINING ALTHOUGH URINE OUTPUT HAS BEEN VERY MINIMAL. SLEEPING THROUGH MOST OF SHIFT AFTER ARRIVING ON UNIT. MATERIALS GATHERED FOR 24 HOUR URINE COLLECTION. NO BM THIS SHIFT. HAS NOT USED CALL LIGHT THUS FAR. NO COMPLAINTS OF PAIN. BED LOCKED IN LOWEST POSITION. CALL LIGHT LEFT WITHIN REACH.
[2023-01-28 03:58] VITALS: BP 142/63
[2023-01-28 05:53] LABS: BASOPHILS ABSOLUTE AUTO 0.03 K/mm3 (0.00-0.23); BASOPHILS PERCENT AUTO 0 % (0-2); EOSINOPHILS ABSOLUTE AUTO 0.35 K/mm3 (0.00-0.68); EOSINOPHILS PERCENT AUTO 3 % (0-6); Hematocrit 23.2 % (37.0-53.0); Hemoglobin 7.2 g/dL (13.5-17.5); IMMATURE GRAN ABSOLUTE AUTO 0.04 K/mm3 (0.00-0.10); IMMATURE GRAN PERCENT AUTO 0 % (0-1); LYMPHOCYTES PERCENT AUTO 26 % (21-46); MONOCYTES ABSOLUTE AUTO 1.37 K/mm3 (0.16-1.47); MONOCYTES PERCENT AUTO 13 % (4-13); Mean Corpuscular HGB 29.3 pg (26.0-34.0); Mean Corpuscular Volume 94 fL (80-100); NEUTROPHILS ABSOLUTE AUTO 6.36 K/mm3 (1.96-9.15); NEUTROPHILS PERCENT AUTO 58 % (41-73); Platelet Count 196 K/mm3 (150-400); RDW Coefficient Variation 13.2 % (11.7-14.2); RDW Standard Deviation 45.5 fL (35.1-46.3); Red Blood Cell Count 2.46 M/mm3 (4.30-5.90); White Blood Cell Count 10.95 K/mm3 (4.00-11.30)
[2023-01-28 06:43] LABS: Magnesium, Blood 1.6 mg/dL (1.6-2.4)
[2023-01-28 06:45] LABS: Albumin, Blood 1.9 g/dL (3.4-5.0); Anion Gap 12 mmol/L (6-16); Blood Urea Nitrogen 117 mg/dL (8-24); Bun/Creatinine Ratio 14.1 (12.0-20.0); CO2, Blood 20 mmol/L (21-32); Calcium, Blood 6.4 mg/dL (8.5-10.1); Chloride, Blood 110 mmol/L (98-108); Glomerular Filtration Rate 6 (60-); Glucose, Blood 117 mg/dL (70-99); Phosphorus, Blood 5.9 mg/dL (2.5-4.9); Potassium, Blood 4.7 mmol/L (3.5-5.5); Sodium, Blood 142 mmol/L (136-145)
--- NOTE | 2023-01-28 11:17 | NUR ---
Pt resting in bed and is pleasantly confused. Pt A&O to self only. Pt can not tell me if he is or have any children. Pt denies pain at this time. Pt appears comfortable with no S/S of distress at this time. Offerd supportive visit. Called and spoke with Pt's Iris. Provided updated and reviewed plan of care. Engaged in therapeutic conversation regarding advanced care planning. Educated on disease process including trajectory and the importance of planning for the future. Offered therapeutic listening as Iris reports some support from their 2 adult children but reports needing more resources in the future. Validated concerns and answered questions. Discussed Pt's code status wishes. Educated on life sustaining measures including risks and implications to CPR. Spouse Iris reports Pt's wishes are DNR. Continued supportive conversation and Provided Palliative Care contact information. Spouse Iris expresses appreciation and reports no other concerns at this time. Spoke with Dr Schuster and discussed case. Placed DNR order in [facility] per V/O from James Schuster. Palliative Care will remain available
[2023-01-28 14:55] VITALS: BP 138/63
--- NOTE | 2023-01-28 19:18 | NUR ---
NO ACUTE CHANGES PT AO WITH MILD CONFUSION. PT A ONE PERSON TO CHAIR OR BED. AVASURE IN ROOM PT WILL FORGET HE NEEDS ASSISTANCE. PT HAS BEEN DOING WELL. CALL LIGHT WITHIN REACH WILL CONTINUE TO MONITOR.
[2023-01-28 20:17] VITALS: BP 131/68
[2023-01-28 22:26] LABS: Protein, Urine Quantitative 38.1 mg/dL (0.0-11.9)
[2023-01-29 03:39] VITALS: BP 135/52
--- NOTE | 2023-01-29 03:44 | NUR ---
SHIFT SUMMARY. SHIFT HAS BEEN UNREMARKABLE. PT TOOK 2100 MEDICATION WITHOUT DIFFICULTY AND HAS SLEPT THROUGH MUCH OF REMAINDER OF SHIFT. 24 HOUR URINE COLLECTION SPECIMEN DELIVERED TO LAB EARLY IN SHIFT. CONDOM CATH REMAINS IN PLACE AND DRAINING WELL ALTHOUGH OUTPUT REMAINS LOW. MAY PERFORM BLADDER SCAN BEFORE SHIFT CHANGE TO CHECK RESIDUAL BLADDER VOLUME. FLUIDS RUNNING THROUGHOUT SHIFT. NO COMPLAINTS OF PAIN THIS SHIFT. PT REMAINS CONFUSED BUT IS VERY PLEASANT AND COOPERATIVE WITH CARE. CAMERA IN PLACE THROUGHOUT SHIFT. PT HAS NOT BEEN IMPULSIVE. DOES NOT USE CALL LIGHT. BED LOCKED IN LOWEST POSITION. CALL LIGHT LEFT WITHIN REACH.
[2023-01-29 05:47] LABS: Hematocrit 23.6 % (37.0-53.0); Hemoglobin 7.4 g/dL (13.5-17.5)
[2023-01-29 06:18] LABS: Magnesium, Blood 1.6 mg/dL (1.6-2.4)
[2023-01-29 06:23] LABS: Anion Gap 9 mmol/L (6-16); Blood Urea Nitrogen 108 mg/dL (8-24); Bun/Creatinine Ratio 13.2 (12.0-20.0); CO2, Blood 22 mmol/L (21-32); Calcium, Blood 6.6 mg/dL (8.5-10.1); Chloride, Blood 111 mmol/L (98-108); Creatinine, Blood 8.16 mg/dL (0.60-1.20); Glomerular Filtration Rate 6 (60-); Glucose, Blood 126 mg/dL (70-99); Phosphorus, Blood 5.8 mg/dL (2.5-4.9); Potassium, Blood 4.8 mmol/L (3.5-5.5); Sodium, Blood 142 mmol/L (136-145)
[2023-01-29 07:28] VITALS: BP 127/54
[2023-01-29 15:13] VITALS: BP 132/63
--- NOTE | 2023-01-29 16:22 | NUR ---
PT IS A/OX3, ORIENTED TO SELF, FAMILY AND PLACE. THE PT IS UP WITH MINIMAL ASSIST. THE PT WORKED WITH THE PHYSICAL AND OCCUPATIONAL THERAPIST TODAY. PT AMBULATED IN THE ROOM USEING THE FWW WITH THE PHYSICAL THERAPIST. THE PT APPEARS TO BE BREATHING EASILY ON RA AT THIS TIME. PT DENIED ANY PAIN T/O THE DAY. PTS FAMILY WAS IN TO SEE HIM. CALL LIGHT IN REACH. WILL CONTINUE TO MONITOR AND ASSESS FOR CHANGES
[2023-01-29 17:07] LABS: IMMUNOGLOBULIN A, QN, SERUM 189 mg/dL (61-437); IMMUNOGLOBULIN G, QN, SERUM 684 mg/dL (603-1613); IMMUNOGLOBULIN M, QN, SERUM 9 mg/dL (15-143)
[2023-01-29 19:54] VITALS: BP 136/58
--- NOTE | 2023-01-30 03:19 | NUR ---
SHIFT SUMMARY ASSUMED CARE A/O VERY PLEASENT PT, HAS NO C/O PAIN NO DISTRESS, STAPLE TO HEAD HEALED POSIBLY DUE FOR REMOVAL. CONDOM CATH IN PLACE AND WORKING WELL. PT CALM AND SLEEPING.
[2023-01-30 05:16] VITALS: BP 147/60
[2023-01-30 05:17] LABS: Hematocrit 24.2 % (37.0-53.0); Hemoglobin 7.5 g/dL (13.5-17.5)
[2023-01-30 05:41] LABS: Albumin, Blood 1.9 g/dL (3.4-5.0); Anion Gap 13 mmol/L (6-16); Blood Urea Nitrogen 106 mg/dL (8-24); Bun/Creatinine Ratio 13.3 (12.0-20.0); CO2, Blood 18 mmol/L (21-32); Calcium, Blood 6.6 mg/dL (8.5-10.1); Chloride, Blood 114 mmol/L (98-108); Creatinine, Blood 7.95 mg/dL (0.60-1.20); Glomerular Filtration Rate 6 (60-); Glucose, Blood 91 mg/dL (70-99); Magnesium, Blood 1.6 mg/dL (1.6-2.4); Potassium, Blood 4.8 mmol/L (3.5-5.5); Sodium, Blood 145 mmol/L (136-145)
[2023-01-30 07:47] VITALS: BP 142/60
[2023-01-30 14:09] LABS: ANTIMYELOPEROXIDASE (MPO) ABS <0.2 units (0.0-0.9); ANTIPROTEINASE 3 (PR-3) ABS <0.2 units (0.0-0.9); ATYPICAL PANCA <1:20 titer (Neg:<1:20); CYTOPLASMIC (C-ANCA) <1:20 titer (Neg:<1:20); PERINUCLEAR (P-ANCA) <1:20 titer (Neg:<1:20)
--- NOTE | 2023-01-30 16:14 | NUR ---
PT IS A/OX3, PLEASANT AND COOPERATIVE T/O THE DAY/ THIS AM THE PT HAD BACK PAIN AND WAS NOT ABLE TO GET UP FROM THE BED, TYLENOL WAS GIVEN. THE PHYSICAL THERAPIST CAME IN TO SEE THE PT AND WAS ABLE TO HELP HIS GET UP FROM THE BED TO THE CHAIR WITH EXCERCISES. SNINCE THEN THE PT HAS NOT COMPLAINED OF BACK PAIN. THE PT APPEARS TO BE BREATHING EASILY ON RA AT THIS TIME. CALL LIGHT IN REACH. WILL CONTINUE TO MONIOTR AND ASSESS FOR CHANGES
[2023-01-30 16:23] VITALS: BP 139/65
[2023-01-30 19:48] VITALS: BP 150/60
--- NOTE | 2023-01-30 23:55 | NUR ---
ASSUMED CARFE OF PT. NO CHANGE FROM PREVIOUS NIGHT FLAT AFFECT BUT COOPRATIVE A DN PLEASENT. NO CHANGE IN CONDITION.
--- NOTE | 2023-01-31 03:22 | NUR ---
PT HAVING LOTS OF BACK PAIN , HE WONT COMPLAIN ABOUT IT AND SAYS ITS ONLY WHEN HE MOVES AND IS OK. I END SOME PAIN MEDICATION IF HE WASNT GOING TO BE GETTING UP TO MOVE AROUND, HE STATED THAT HE WAS VERY STIFF AND PROBABLY THE REASON. PT REFUSED MEDICATION STRONGER THAN TYLENOL BUT WILL LET ME KNOW IF HE CHANGES HIS MIND.
--- NOTE | 2023-01-31 04:08 | NUR ---
PT COMPLAINING OF A STIFF NECK, STILL DOESNT WANT ADDITIONAL PAIN MEDS SO I PLACED HEATING PAD TO NECK.
[2023-01-31 04:52] VITALS: BP 146/59
--- NOTE | 2023-01-31 05:20 | NUR ---
SHIFT SUMMARY ASSUMED CARE VSS. HIREN BUSBY DISCUSSED PT QUIET WITH FLAT AFFECT. I ENC PT TO MOVE BUT HAS C/O PAIN TO BACK WITH MOVEMENT STATES HE IS GETTING STIFF. DISCUSSED WITH PT PAIN MANAGEMENT BUT DIDNT WANT ANYOTHER MED OTHER THAN TYLENOL, SO I ENC REPOSITIONING AND APPLIED HEAT PAD. NEW CONDOM CATH APPLIED TO PT.
[2023-01-31 05:34] LABS: BASOPHILS ABSOLUTE AUTO 0.02 K/mm3 (0.00-0.23); BASOPHILS PERCENT AUTO 0 % (0-2); EOSINOPHILS ABSOLUTE AUTO 0.36 K/mm3 (0.00-0.68); EOSINOPHILS PERCENT AUTO 3 % (0-6); Hematocrit 25.5 % (37.0-53.0); IMMATURE GRAN ABSOLUTE AUTO 0.05 K/mm3 (0.00-0.10); IMMATURE GRAN PERCENT AUTO 0 % (0-1); LYMPHOCYTES PERCENT AUTO 34 % (21-46); MONOCYTES ABSOLUTE AUTO 1.13 K/mm3 (0.16-1.47); MONOCYTES PERCENT AUTO 10 % (4-13); Mean Corpuscular HGB Conc 31.4 g/dL (31.5-36.5); Mean Corpuscular Volume 92 fL (80-100); Mean Platelet Volume 10.1 fL (9.1-12.4); NEUTROPHILS ABSOLUTE AUTO 5.96 K/mm3 (1.96-9.15); NEUTROPHILS PERCENT AUTO 53 % (41-73); Platelet Count 289 K/mm3 (150-400); RDW Standard Deviation 43.6 fL (35.1-46.3); Red Blood Cell Count 2.76 M/mm3 (4.30-5.90); White Blood Cell Count 11.32 K/mm3 (4.00-11.30)
[2023-01-31 05:57] LABS: Anion Gap 12 mmol/L (6-16); Blood Urea Nitrogen 110 mg/dL (8-24); Bun/Creatinine Ratio 13.9 (12.0-20.0); CO2, Blood 21 mmol/L (21-32); Chloride, Blood 110 mmol/L (98-108); Creatinine, Blood 7.91 mg/dL (0.60-1.20); Glomerular Filtration Rate 6 (60-); Glucose, Blood 124 mg/dL (70-99); Magnesium, Blood 1.7 mg/dL (1.6-2.4); Phosphorus, Blood 6.1 mg/dL (2.5-4.9); Potassium, Blood 4.7 mmol/L (3.5-5.5); Sodium, Blood 143 mmol/L (136-145)
[2023-01-31 07:16] VITALS: BP 156/66
[2023-01-31] MEDS ORDERED: QUET25 PO (14:06)
--- NOTE | 2023-01-31 15:20 | NUR ---
PT DISCHARGED THE PT AND HIS FAMILY VERBALIZED UNDERSTANDING OF THE DC INSTRUCTIONS. THE PTS PRESCRIPTIONS WERE FAXED TO [facility] REQUESTED. FOLLOW UP APPOINTMENTS WERE MADE FOR THE PT PRIOR TO DC. THE PT WAS TRANSFERED VIA WHEELCHAIR ACCOMPANIED BY THE ORTHOTICS PROSTHETICS ASSISTANT AND HIS FAMILY
[2023-02-04 11:10] LABS: M-SPIKE, % Not Observed % (Not Observed); PROTEIN,TOTAL,URINE 14.1 mg/dL (Not Estab.)
== END 2023-01-31 15:44 | disposition home health service (06) | DRG 683 ==
LOC: ER 13:20 → ICUE 16:20 → MEDS 16:20 → ICUE 17:09 → PCU 01-24 11:13 → MEDS 01-27 19:57
PROVIDERS: Emergency Medicine; Internal Medicine Nephrology; ADMIT Family Medicine
PROC: 0HQ0XZZ Repair Scalp Skin, External Approach (ICD-10-PCS; principal; 2023-01-21)
PROC: 0T9B70Z Drainage of Bladder with Drainage Device, Via Natural or Artificial Opening (ICD-10-PCS; 2023-01-21)
PROC: 30233N1 Transfusion of Nonautologous Red Blood Cells into Peripheral Vein, Percutaneous Approach (ICD-10-PCS; 2023-01-23)
DX: N17.9 Acute kidney failure, unspecified (principal); E44.0 Moderate protein-calorie malnutrition; E87.0 Hyperosmolality and hypernatremia; E87.20 Acidosis, unspecified; F05 Delirium due to known physiological condition; E87.5 Hyperkalemia; N25.81 Secondary hyperparathyroidism of renal origin; S01.01XA Laceration without foreign body of scalp, initial encounter; I12.9 Hypertensive chronic kidney disease with stage 1 through stage 4 chronic kidney disease, or unspecified chronic kidney disease; F03.90 Unspecified dementia, unspecified severity, without behavioral disturbance, psychotic disturbance, mood disturbance, and anxiety; E11.22 Type 2 diabetes mellitus with diabetic chronic kidney disease; E78.5 Hyperlipidemia, unspecified; N18.30 Chronic kidney disease, stage 3 unspecified; D63.1 Anemia in chronic kidney disease; E88.09 Other disorders of plasma-protein metabolism, not elsewhere classified; W06.XXXA Fall from bed, initial encounter; Z79.899 Other long term (current) drug therapy; Z98.49 Cataract extraction status, unspecified eye; Z79.84 Long term (current) use of oral hypoglycemic drugs; Z68.22 Body mass index [BMI] 22.0-22.9, adult
CPT/HCPCS: 12001; 36415; 36430; 51702; 51798; 70450; 71045; 72125; 76770; 80048; 80053; 80069; 81001; 82550; 82947; 83516; 83520; 83735; 84156; 84166; 84550; 85014; 85018; 85025; 85610; 86037; 86038; 86334; 86335; 86850; 86900; 86901; 86923; 93005; 93010; 96365-59; 96372-59; 96375-59; 97110; 97112; 97116; 97162; 97166; 97530; 97535; 99285-25; A9270; C1751; G0103; J0612; J0881; J1644; J1815; J1940; J3475; J7030; J7050; J7070; P9016

== ENCOUNTER 2023-02-04 11:32 | Inpatient (IN) | payer MEDICARE, OTHER ==
[~2023-02-04] VITALS: Ht 177.8 cm; Wt 79.8 kg
[~2023-02-04 11:32] MED LIST changes: +QUET25 PO
[2023-02-04] MEDS ORDERED: GLUCOPHAGE1000 M1 PO (11:59)
[2023-02-04 12:18] LABS: BASOPHILS ABSOLUTE AUTO 0.02 K/mm3 (0.00-0.23); BASOPHILS PERCENT AUTO 0 % (0-2); EOSINOPHILS ABSOLUTE AUTO 0.15 K/mm3 (0.00-0.68); EOSINOPHILS PERCENT AUTO 2 % (0-6); Hemoglobin 7.8 g/dL (13.5-17.5); IMMATURE GRAN ABSOLUTE AUTO 0.05 K/mm3 (0.00-0.10); IMMATURE GRAN PERCENT AUTO 1 % (0-1); LYMPHOCYTES ABSOLUTE AUTO 2.19 K/mm3 (0.84-5.20); LYMPHOCYTES PERCENT AUTO 28 % (21-46); MONOCYTES ABSOLUTE AUTO 0.81 K/mm3 (0.16-1.47); MONOCYTES PERCENT AUTO 10 % (4-13); Mean Corpuscular HGB 29.5 pg (26.0-34.0); Mean Corpuscular HGB Conc 31.2 g/dL (31.5-36.5); Mean Corpuscular Volume 95 fL (80-100); Mean Platelet Volume 9.7 fL (9.1-12.4); NEUTROPHILS ABSOLUTE AUTO 4.72 K/mm3 (1.96-9.15); NEUTROPHILS PERCENT AUTO 59 % (41-73); NRBC ABSOLUTE 0.03 K/mm3 (0.00-0.02); NRBC Auto 0.4 /100 WBC (0.0-0.2); Platelet Count 336 K/mm3 (150-400); RDW Coefficient Variation 12.9 % (11.7-14.2); RDW Standard Deviation 45.1 fL (35.1-46.3); Red Blood Cell Count 2.64 M/mm3 (4.30-5.90); White Blood Cell Count 7.94 K/mm3 (4.00-11.30)
[2023-02-04 12:44] LABS: Albumin, Blood 2.3 g/dL (3.4-5.0); Albumin/Globulin Ratio 0.7 (0.8-1.8); Bilirubin, Total 0.3 mg/dL (0.1-1.0); Bun/Creatinine Ratio 12.1 (12.0-20.0); Calcium, Blood 6.8 mg/dL (8.5-10.1); Creatinine, Blood 8.26 mg/dL (0.60-1.20); Globulin, Blood 3.4 g/dL (2.2-4.0); Potassium, Blood 4.8 mmol/L (3.5-5.5); Total Protein, Blood 5.7 g/dL (6.4-8.2)
[2023-02-04 15:49] VITALS: BP 162/68
[2023-02-04 19:37] VITALS: BP 145/65
--- NOTE | 2023-02-05 04:20 | NUR ---
SHIFT SUMMARY PT HAS RESTED WELL T/O NIGHT. IVF INFUSING PER ORDERS. DENIES ANY NEEDS. UP TO RESTROOM WITH 1 SBA. BED ALARM ON FOR SAFETY. CALL LIGHT WITHIN REACH.
[2023-02-05 04:21] VITALS: BP 146/59
[2023-02-05 05:17] LABS: Hematocrit 43.1 % (37.0-53.0); Hemoglobin 13.4 g/dL (13.5-17.5)
[2023-02-05 05:21] LABS: Magnesium, Blood 1.6 mg/dL (1.6-2.4)
[2023-02-05 05:40] LABS: Albumin, Blood 2.1 g/dL (3.4-5.0); Anion Gap 10 mmol/L (6-16); Blood Urea Nitrogen 101 mg/dL (8-24); Bun/Creatinine Ratio 12.4 (12.0-20.0); CO2, Blood 20 mmol/L (21-32); Calcium, Blood 6.7 mg/dL (8.5-10.1); Chloride, Blood 115 mmol/L (98-108); Creatinine, Blood 8.12 mg/dL (0.60-1.20); Glomerular Filtration Rate 6 (60-); Glucose, Blood 137 mg/dL (70-99); Phosphorus, Blood 6.9 mg/dL (2.5-4.9); Potassium, Blood 4.8 mmol/L (3.5-5.5); Sodium, Blood 145 mmol/L (136-145)
[2023-02-05 07:12] VITALS: BP 146/73
[2023-02-05 15:11] VITALS: BP 104/55
--- NOTE | 2023-02-05 18:09 | NUR ---
DAYSHIFT SUMMARY Patient AOx2-3. Worked with therapy this morning, ambulates well w/o minimal assist. D/t mentation, bed/chair alarm activated for safety. IV NS infusing continously, Dr. Robles changed rate to 50mL/hr. VSS. Will continue plan of care.
[2023-02-05 19:30] VITALS: BP 121/57
[2023-02-06] VITALS (11 sets, daily range): BP systolic 95–169; BP diastolic 54–80
--- NOTE | 2023-02-06 04:17 | NUR ---
SHIFT SUMMARY; NO ACUTE CHANGES OVERNIGHT. THE PT IS AXO X3, CONFUSION AT TIMES BUT EASILY REDIRECTABLE. THE PT HAS BEEN INCONTINENT T/O THE NIGHT BUT THE PT WAS UNAWARE THAT HE WAS INCONTINENT. THE PT HAS GOT UP WITH A STANDBY ASSIST AND DONE WELL. THE PT HAS NS RUNNING AT 50MLS/HR PER PER [facility] RN REPORT. THE PT DENIES ANY CHEST PAIN/PRESSURE, SOB, N/V OR PAIN. CURRENTLY THE PT IS SLEEPING IN BED WITH THE BED IN THE LOWEST POSITION AND THE CALL LIGHT AT BEDSIDE. FIRE SAFETY MAINATINED T/O THE SHIFT.
[2023-02-06 05:41] LABS: Hematocrit 22.7 % (37.0-53.0); Hemoglobin 6.9 g/dL (13.5-17.5)
--- NOTE | 2023-02-06 06:14 | NUR ---
CALLED DR. CASTELLANOS ABOUT PTS HGB OF 6.9, PER DR. CASTELLANOS HAVE A CBC DRAWN TO DOUBLE CHECK THAT THE HGB IS ACCURATE. AWAITING FOR CBC TO BE DRAWN CURRENTLY.
[2023-02-06 06:23] LABS: Magnesium, Blood 1.6 mg/dL (1.6-2.4)
[2023-02-06 06:25] LABS: BASOPHILS ABSOLUTE AUTO 0.01 K/mm3 (0.00-0.23); BASOPHILS PERCENT AUTO 0 % (0-2); EOSINOPHILS ABSOLUTE AUTO 0.19 K/mm3 (0.00-0.68); EOSINOPHILS PERCENT AUTO 3 % (0-6); Hematocrit 22.9 % (37.0-53.0); Hemoglobin 6.9 g/dL (13.5-17.5); IMMATURE GRAN ABSOLUTE AUTO 0.03 K/mm3 (0.00-0.10); IMMATURE GRAN PERCENT AUTO 0 % (0-1); LYMPHOCYTES ABSOLUTE AUTO 2.51 K/mm3 (0.84-5.20); LYMPHOCYTES PERCENT AUTO 33 % (21-46); MONOCYTES ABSOLUTE AUTO 0.62 K/mm3 (0.16-1.47); MONOCYTES PERCENT AUTO 8 % (4-13); Mean Corpuscular HGB 29.2 pg (26.0-34.0); Mean Corpuscular HGB Conc 30.1 g/dL (31.5-36.5); Mean Corpuscular Volume 97 fL (80-100); Mean Platelet Volume 9.7 fL (9.1-12.4); NEUTROPHILS ABSOLUTE AUTO 4.21 K/mm3 (1.96-9.15); NEUTROPHILS PERCENT AUTO 56 % (41-73); Platelet Count 288 K/mm3 (150-400); RDW Standard Deviation 46.5 fL (35.1-46.3); Red Blood Cell Count 2.36 M/mm3 (4.30-5.90); White Blood Cell Count 7.57 K/mm3 (4.00-11.30)
[2023-02-06 06:30] LABS: Anion Gap 9 mmol/L (6-16); Blood Urea Nitrogen 100 mg/dL (8-24); Bun/Creatinine Ratio 12.4 (12.0-20.0); CO2, Blood 17 mmol/L (21-32); Calcium, Blood 6.5 mg/dL (8.5-10.1); Chloride, Blood 118 mmol/L (98-108); Creatinine, Blood 8.09 mg/dL (0.60-1.20); Glomerular Filtration Rate 6 (60-); Glucose, Blood 119 mg/dL (70-99); Phosphorus, Blood 6.5 mg/dL (2.5-4.9); Potassium, Blood 4.8 mmol/L (3.5-5.5); Sodium, Blood 144 mmol/L (136-145)
[2023-02-06 06:59] LABS: BASOPHILS ABSOLUTE AUTO 0.02 K/mm3 (0.00-0.23); BASOPHILS PERCENT AUTO 0 % (0-2); EOSINOPHILS ABSOLUTE AUTO 0.19 K/mm3 (0.00-0.68); EOSINOPHILS PERCENT AUTO 3 % (0-6); Hemoglobin 6.9 g/dL (13.5-17.5); IMMATURE GRAN ABSOLUTE AUTO 0.03 K/mm3 (0.00-0.10); IMMATURE GRAN PERCENT AUTO 0 % (0-1); LYMPHOCYTES ABSOLUTE AUTO 2.49 K/mm3 (0.84-5.20); LYMPHOCYTES PERCENT AUTO 32 % (21-46); MONOCYTES ABSOLUTE AUTO 0.71 K/mm3 (0.16-1.47); MONOCYTES PERCENT AUTO 9 % (4-13); Mean Corpuscular HGB 29.6 pg (26.0-34.0); Mean Corpuscular HGB Conc 31.4 g/dL (31.5-36.5); Mean Corpuscular Volume 94 fL (80-100); Mean Platelet Volume 9.6 fL (9.1-12.4); NEUTROPHILS ABSOLUTE AUTO 4.26 K/mm3 (1.96-9.15); NEUTROPHILS PERCENT AUTO 55 % (41-73); Platelet Count 272 K/mm3 (150-400); RDW Coefficient Variation 13.1 % (11.7-14.2); RDW Standard Deviation 44.6 fL (35.1-46.3); Red Blood Cell Count 2.33 M/mm3 (4.30-5.90)
--- NOTE | 2023-02-06 13:37 | NUR ---
MULTIPLE ATTEMPTS TO START A SECOND IV TO RUN BLOOD PRODUCTS AND SODIUM BICARB INFUSION, ONLY ABLE TO START ONE IV. PROVIDER NOTIFIED OF DELAY OF SODIUM BICARB INFUSION.
--- NOTE | 2023-02-06 20:12 | NUR ---
SHIFT SUMMARY: ERASTO IS ALERT AND ORIENTED X 2-3. HE DID NOT REMEMBER THE DOCTOR SPEAKING WITH HIM THIS MORNING AND WAS UNSURE ABOUT RECEIVING THE ORDERED BLOOD. CALLED AND SPOKE WITH THE HOSPITALIST WHO CAME AND SPOKE WITH PT AND FAMILY AT BEDSIDE. PT AGREEABLE TO TRANSFUSION AND SIGNED BLOOD CONSENT. PT IS A DIFFICULT IV START, CHILDREN'S AIDE ATTEMPTED MIDLINE WELL WITHOUT SUCCESS. PT TOLERATED PO INTAKE WELL, AND USED THE URINAL AND CALL LIGHT THIS SHIFT. IV TO LEFT HAND PATENT. PT UP TO CHAIR FOR PART OF THE DAY, STANDBY ASSIST FOR AMBULATION. HE IS LYING IN BED WITH THE CALL LIGHT IN REACH. REPORT WAS GIVEN TO DONOR CENTER TECHNICIAN RN.
--- NOTE | 2023-02-06 20:39 | NUR ---
PT WAS TRANSFUSED 1 UNIT OF RBC TODAY, CALLED ERIC DUNAWAY ABOUT DOING A REPEAT H&H. PER ERIC DUNAWAY, OKAY TO WAIT UNTIL MORNING LABS FOR H&H. CALLED ABOUT PT HAVING SODIUM BICARD DRIP AND AND PO SODIUM BICARB ORDERED BID, PER PT NEEDS BOTH.
[2023-02-07 04:10] VITALS: BP 139/70
--- NOTE | 2023-02-07 04:47 | NUR ---
SHIFT SUMMARY; NO ACUTE CHANGES OVERNIGHT. THE PT IS AXO X3 AND A STANDBY ASSIST TO USE THE URINAL AT BEDSIDE. THE PT HAS BEEN SWAYING ON HIS FEET WHEN HE STANDS UP, THEREFORE, WE HAVE HAD THE BED ALARM ON THE PT FOR SAFETY. THE PT HAS BEEN SLEEPING IN BED FOR THE MAJORITY OF THE NIGHT. SODIUM BICARBONATE REMAINS RUNNING. THE PT DENIES ANY CHEST PAIN/PRESSURE, SOB, PAIN OR N/V THIS SHIFT. CURRENTLY THE PT IS SLEEPING IN BED WITH THE BED IN THE LOWEST POSITION AND THE CALL LIGHT AT BEDSIDE. FIRE SAFETY MAINTAINED T/O THE SHIFT.
[2023-02-07 05:33] LABS: Hematocrit 25.5 % (37.0-53.0)
[2023-02-07 06:57] LABS: Magnesium, Blood 1.5 mg/dL (1.6-2.4)
[2023-02-07 06:59] LABS: Albumin, Blood 2.1 g/dL (3.4-5.0); Anion Gap 10 mmol/L (6-16); Blood Urea Nitrogen 95 mg/dL (8-24); Bun/Creatinine Ratio 11.5 (12.0-20.0); CO2, Blood 21 mmol/L (21-32); Calcium, Blood 6.4 mg/dL (8.5-10.1); Chloride, Blood 114 mmol/L (98-108); Creatinine, Blood 8.29 mg/dL (0.60-1.20); Glomerular Filtration Rate 6 (60-); Glucose, Blood 141 mg/dL (70-99); Phosphorus, Blood 6.2 mg/dL (2.5-4.9); Potassium, Blood 4.5 mmol/L (3.5-5.5); Sodium, Blood 145 mmol/L (136-145)
[2023-02-07 07:37] VITALS: BP 135/63
[2023-02-07 14:57] VITALS: BP 104/53
--- NOTE | 2023-02-07 16:25 | NUR ---
SHIFT SUMMARY CRITICAL VALUE FOR CREATININE THIS AM, ORDERS PLACED AND COMPLETED. AMBULATING SHORT DISTANCES WITH WALKER IN ROOM THIS AM, PATIENT IS NOT STEADY WITHOUT EQUIPMENT. BED ALARM ON, PATIENT BED EXITING, REMINDED TO USE CALL LIGHT FOR SAFETY. DECLINED HEPARIN THIS AM.
[2023-02-07 20:30] VITALS: BP 123/67
[2023-02-08 03:22] VITALS: BP 147/80
--- NOTE | 2023-02-08 04:41 | NUR ---
SHIFT SUMMARY NOC PT A/O TO SELF AND PERSON. PLEASANTLY CONFUSED AND COOPERATIVE WITH CARE. NO ACUTE CHANGES TO REPORT. PT IV IN LH WAS D/C DUE TO LEAKING AND NEW IV ACCESS PLACED IN LW THAT IS INFUSING NS @ 50 ML/HR. PT HAS HAD TO USE BATHROOM MULTIPLE TIMES THROUGHOUT SHIFT AND URINE IS LOOKING CLEAR AND YELLOW, SO AWAITING AM LABS FOR RENAL FUNCTION IMPROVEMENT. PT IS CURRENTLY RESTING WITH BED ALARM ON, BED IN LOWEST POSITION, AND CALL LIGHT WITHIN REACH.
[2023-02-08 05:10] LABS: Hematocrit 26.5 % (37.0-53.0); Hemoglobin 8.2 g/dL (13.5-17.5)
[2023-02-08 05:45] LABS: Magnesium, Blood 1.5 mg/dL (1.6-2.4)
[2023-02-08 05:57] LABS: Albumin, Blood 2.2 g/dL (3.4-5.0); Anion Gap 8 mmol/L (6-16); Blood Urea Nitrogen 90 mg/dL (8-24); CO2, Blood 22 mmol/L (21-32); Calcium, Blood 6.1 mg/dL (8.5-10.1); Chloride, Blood 116 mmol/L (98-108); Creatinine, Blood 8.19 mg/dL (0.60-1.20); Glomerular Filtration Rate 6 (60-); Glucose, Blood 115 mg/dL (70-99); Phosphorus, Blood 5.4 mg/dL (2.5-4.9); Potassium, Blood 4.3 mmol/L (3.5-5.5); Sodium, Blood 146 mmol/L (136-145)
[2023-02-08 07:48] VITALS: BP 146/71
--- NOTE | 2023-02-08 16:31 | NUR ---
SHIFT SUMMARY PATIENT COOPERATIVE WITH CARES, FORGETFUL TO USE THE CALL LIGHT AT TIMES. INCONTINENT AT TIMES. AMBULATING SHORT DISTANCES WITHIN ROOM AND TO BATHROOM. CONTINUES RECEIVING .45 NS VIA IV WITH NO COMPLICATIONS. WILL CONTINUE TO MONITOR.
[2023-02-08 20:25] VITALS: BP 120/59
--- NOTE | 2023-02-09 03:52 | NUR ---
SHIFT SUMMARY PT HAS BEEN CALM AND COOPERATE THIS SHIFT. AXOX2, CONFUSED AND EASILY REDIRECTABLE FOR ME. PT APPEARS TO BE RESTING COMFORTABLY WITH NO DISTRESS. PT DENIED HAVING ANY PAIN OR CONCERNS ABOUT HIS GENERAL HEALTH. DOES NOT CALL APPROPRIATELY. BED IS IN THE LOWEST POSITION WITH THE BED ALARM ON WITH CALL LIGHT IN REACH.
[2023-02-09 04:01] VITALS: BP 140/71
[2023-02-09 05:22] LABS: Hematocrit 26.5 % (37.0-53.0)
[2023-02-09 06:21] LABS: Magnesium, Blood 1.4 mg/dL (1.6-2.4)
[2023-02-09 06:41] LABS: Albumin, Blood 2.1 g/dL (3.4-5.0); Anion Gap 9 mmol/L (6-16); Blood Urea Nitrogen 89 mg/dL (8-24); Bun/Creatinine Ratio 10.6 (12.0-20.0); CO2, Blood 21 mmol/L (21-32); Calcium, Blood 6.4 mg/dL (8.5-10.1); Chloride, Blood 116 mmol/L (98-108); Creatinine, Blood 8.43 mg/dL (0.60-1.20); Glomerular Filtration Rate 6 (60-); Glucose, Blood 115 mg/dL (70-99); Phosphorus, Blood 5.5 mg/dL (2.5-4.9); Potassium, Blood 4.5 mmol/L (3.5-5.5); Sodium, Blood 146 mmol/L (136-145)
[2023-02-09 07:22] VITALS: BP 142/71
[2023-02-09 15:36] VITALS: BP 108/57
--- NOTE | 2023-02-09 17:11 | NUR ---
METAL BOX MAKER NOTIFIED RN THAT PT'S BLOOD SUGAR WAS 67. RN ASSESSED PT, WHO DENIED DIZZINESS. PT HAS A RESIDUAL TREMOR, WHICH IS NOTED. HE IS SITTING UP IN BED, RESPONDING TO QUESTIONS AND TALKING TO ON THE PHONE. RN GAVE PT AN ORANGE JUICE TO DRINK AND 2 MY CRACKERS. PT THEN WATCHING TV.
--- NOTE | 2023-02-09 17:13 | NUR ---
PER DR. ROSA, RN WAS TO DISCUSS PERMACATH WITH PT'S WHEN SHE VISITED. PT'S NEVER CAME TO HOSPITAL TODAY, SO RN CALLED F[facility]. RN SPOKE TO PT'S FARZANEH ON THE PHONE, AND PT'S SON DENNYS. (DENNYS WAS EARLIER INCLUDED IN CONSULTATION WITH DR. ROSA). FARZANEH AND DENNYS BOTH STATE AGREEMENT TO THE PLAN OF INSERTION OF DIALYSIS CATHETER, AND CONSULTATION WITH DR. JENSEN INTERVENTIONAL RADIOLOGIST. PT HAS HX OF DEMENTIA, AND IS PRIMARY CAREGIVER. RN WILL UPDATE ORDERS.
--- NOTE | 2023-02-09 18:36 | NUR ---
PT ALERT TO SELF AND FAMILY ONLY. HX OF DEMENTIA, WITH SUNDOWNING SYMPTOMS TODAY. DR ROSA CONSULTED WITH FAMILY AND RECOMMENDED HEMODIALYSIS. RN SPOKE TO PT'S AND SON ON THE PHONE TODAY, BOTH ARE AGREEABLE TO HD. RN PLACED ORDER FOR CONSULT FOR DR. JENSEN AND INTERVENTIONAL RADIOLOGY. RN WILL REPORT TO NIGHT NURSE THAT PT WILL NEED TO BE NPO AT MIDNIGHT. PT HAD A ONE TIME LOW BLOOD SUGAR EPISODE OF 67, ASYMPTOMATIC.
--- NOTE | 2023-02-09 19:45 | NUR ---
rn faxed consult facesheet to Dr. Witt's office. Copy placed in the pt's chart.
[2023-02-09 20:12] VITALS: BP 117/57
[2023-02-10 04:54] LABS: Hematocrit 25.6 % (37.0-53.0); Hemoglobin 7.9 g/dL (13.5-17.5)
[2023-02-10 05:10] VITALS: BP 131/63
[2023-02-10 05:37] LABS: Magnesium, Blood 1.6 mg/dL (1.6-2.4)
--- NOTE | 2023-02-10 05:53 | NUR ---
NO DISTRESS NOTED AND PT AOX2. PT HAS BEEN RESTING WELL IN BED THROUGHOUT THE NIGHT. BED ALARM IS INPLACE AND PT HAS BEEN KEEP NPO SINCE MIDNIGT FOR POSSIBLE HEMODIALYSIS PORT TO BE PLACED. WILL CONTINUE TO MONITOR. IGNITION RISK ASSESSMENT HAS BEEN DONE WITH HOURLY ROUNDING NO HAZARD FOUND.
[2023-02-10 06:11] LABS: Albumin, Blood 2.1 g/dL (3.4-5.0); Anion Gap 11 mmol/L (6-16); Blood Urea Nitrogen 89 mg/dL (8-24); Bun/Creatinine Ratio 10.4 (12.0-20.0); CO2, Blood 20 mmol/L (21-32); Calcium, Blood 6.6 mg/dL (8.5-10.1); Chloride, Blood 117 mmol/L (98-108); Creatinine, Blood 8.58 mg/dL (0.60-1.20); Glomerular Filtration Rate 6 (60-); Glucose, Blood 72 mg/dL (70-99); Phosphorus, Blood 5.5 mg/dL (2.5-4.9); Potassium, Blood 4.7 mmol/L (3.5-5.5); Sodium, Blood 148 mmol/L (136-145)
[2023-02-10 08:16] VITALS: BP 140/69
[2023-02-10 16:12] VITALS: BP 161/75
--- NOTE | 2023-02-10 19:19 | NUR ---
SHIFT SUMMARY: PT A&O X2-3. PT PLEASANT AND COOPERATIVE WITH ALL CARE. PT SLIGHTLY UPSET THIS AM DUE TO BEING "STARVING." PT AND UNDERSTOOD ABOUT NPO STATUS. FACE SHEET FAXED TWICE TO DR. ROJAS OFFICE FOR INSERTION OF PERMACATH. NO CONSULT HAS BEEN DONE OF THIS TIME. BRANCH SERVICES MANAGER RN AND WILL FAX AGAIN IF NEEDED. GAVE CELL PHONE NUMBER TO BE INVOLVED IN CONVERSATION DUE TO MILD DEMENTIA OF PT. PT STATES HE DOES NOT REMEBER CONSENTING TO PROCEDURE YESTERDAY. FOOD TRAY ACCIDENTALLY GIVEN TO PT FOR DINNER BY STAFF MEMBER. NOC RN AWARE FOR PROCEDURE TO NOT BE DONE TONIGHT DUE TO NPO STATUS NOT FOLLOWED. 1/2 NS RUNNING @50/HR. PT AGREEABLE TO WORK WITH OT THIS SHIFT. STATES SHE IS NEEDING TO KNOW PLAN TO COORDINATE WITH CARE AT HOME. CALL LIGHT IN REACH. BED IN LOWEST POSITION. WILL CONTINUE TO MONITOR.
[2023-02-10 19:52] VITALS: BP 154/74
[2023-02-11 04:11] VITALS: BP 167/79
[2023-02-11 06:08] LABS: Hematocrit 27.5 % (37.0-53.0); Hemoglobin 8.4 g/dL (13.5-17.5)
--- NOTE | 2023-02-11 06:14 | NUR ---
SHIFT SUMMARY PT RESTING COMFORTABLY IN BED WITH RESPIRATIONS EVEN & UNLABORED T/O SHIFT. NPO AT MIDNIGHT FOR POSSIBLE PERMACATH PLACEMENT TODAY. FAX FOR CONSULT SENT TO DR. MIKEY HANNAH. PT PLEASANT & COOPERATIVE WITH CARE. PT UP TO SHOWER THIS AM. BACK TO BED AFTER. NO OTHER ACUTE CHANGES IN ASSESSMENT AT THIS TIME. VS REVIEWED. CALL LIGHT IN REACH. DENIES OTHER NEEDS AT THIS TIME.
[2023-02-11 06:46] LABS: Magnesium, Blood 1.6 mg/dL (1.6-2.4)
[2023-02-11 06:52] LABS: Albumin, Blood 2.2 g/dL (3.4-5.0); Anion Gap 11 mmol/L (6-16); Blood Urea Nitrogen 86 mg/dL (8-24); CO2, Blood 21 mmol/L (21-32); Calcium, Blood 7.1 mg/dL (8.5-10.1); Chloride, Blood 115 mmol/L (98-108); Creatinine, Blood 8.64 mg/dL (0.60-1.20); Glomerular Filtration Rate 6 (60-); Glucose, Blood 107 mg/dL (70-99); Phosphorus, Blood 5.8 mg/dL (2.5-4.9); Potassium, Blood 5.3 mmol/L (3.5-5.5); Sodium, Blood 147 mmol/L (136-145)
[2023-02-11 07:27] VITALS: BP 171/72
--- NOTE | 2023-02-11 11:30 | NUR ---
FULL PROCEDURE REPORT PROVIDED MARIA R SIDHU TO ASSUME CARE OF PT IN ROOM 336.
[2023-02-11 17:21] VITALS: BP 115/59
--- NOTE | 2023-02-11 18:15 | NUR ---
SHIFT SUMMARY PATIENT CONTINUES TO BE CONFUSED BUT COOPERATIVE WITH CARE. PATIENT HAD PERMACATH PLACED TO R CHEST WALL. SMALL AMOUNT OF BRUISING NOTED ABOVE DRESSING AND UNCHAGED THROUGHOUT SHIFT. TENDERNESS WHEN PALPATED. BED ALARM ON BECAUSE PATIENT IMPULSIVE AND ATTEMPTS TO GET OUT OF BED TO BATHROOM WITHOUT ASSISTANCE. STAT POTASSIUM DRAWN AFTER LINE PLACED AND CALLED TO DR. ROSA. NO DIALYSIS TODAY.
[2023-02-11 19:12] VITALS: BP 122/63
[2023-02-12] VITALS (15 sets, daily range): BP systolic 101–163; BP diastolic 50–82
--- NOTE | 2023-02-12 04:54 | NUR ---
SHIFT SUMMARY 77 YR M ADMITTED ON 02/04/23 FOR CKD. FULL CODE. NO ACUTE CHANGES THIS SHIFT. PT HAD NO C/O PAIN OR DISCOMFORT THIS SHIFT. HE IS IMPULSIVE TO GET OUT OF BED W/O ASSISTANCE AND GETS IRRITATED WHEN THE BED ALARM GOES OFF DESPITE MULTIPLE CONVERSATIONS WITH HIM REGARDING SAFETY AND CALLING FOR ASSISTANCE.
[2023-02-12 05:50] LABS: BASOPHILS ABSOLUTE AUTO 0.02 K/mm3 (0.00-0.23); BASOPHILS PERCENT AUTO 0 % (0-2); EOSINOPHILS ABSOLUTE AUTO 0.24 K/mm3 (0.00-0.68); EOSINOPHILS PERCENT AUTO 3 % (0-6); Hematocrit 27.3 % (37.0-53.0); Hemoglobin 8.5 g/dL (13.5-17.5); IMMATURE GRAN ABSOLUTE AUTO 0.04 K/mm3 (0.00-0.10); IMMATURE GRAN PERCENT AUTO 1 % (0-1); LYMPHOCYTES ABSOLUTE AUTO 2.73 K/mm3 (0.84-5.20); LYMPHOCYTES PERCENT AUTO 31 % (21-46); MONOCYTES ABSOLUTE AUTO 0.88 K/mm3 (0.16-1.47); MONOCYTES PERCENT AUTO 10 % (4-13); Mean Corpuscular HGB 28.2 pg (26.0-34.0); Mean Corpuscular HGB Conc 31.1 g/dL (31.5-36.5); Mean Corpuscular Volume 91 fL (80-100); Mean Platelet Volume 9.3 fL (9.1-12.4); NEUTROPHILS ABSOLUTE AUTO 4.87 K/mm3 (1.96-9.15); NEUTROPHILS PERCENT AUTO 56 % (41-73); Platelet Count 308 K/mm3 (150-400); RDW Coefficient Variation 15.8 % (11.7-14.2); RDW Standard Deviation 52.1 fL (35.1-46.3); Red Blood Cell Count 3.01 M/mm3 (4.30-5.90); White Blood Cell Count 8.78 K/mm3 (4.00-11.30)
[2023-02-12 06:36] LABS: Magnesium, Blood 1.6 mg/dL (1.6-2.4)
[2023-02-12 06:43] LABS: Albumin, Blood 2.3 g/dL (3.4-5.0); Anion Gap 9 mmol/L (6-16); Blood Urea Nitrogen 87 mg/dL (8-24); CO2, Blood 22 mmol/L (21-32); Calcium, Blood 7.2 mg/dL (8.5-10.1); Chloride, Blood 116 mmol/L (98-108); Creatinine, Blood 8.72 mg/dL (0.60-1.20); Glomerular Filtration Rate 6 (60-); Glucose, Blood 110 mg/dL (70-99); Phosphorus, Blood 5.7 mg/dL (2.5-4.9); Potassium, Blood 4.9 mmol/L (3.5-5.5); Sodium, Blood 147 mmol/L (136-145)
[2023-02-12 09:13] LABS: HBSAG SCREEN Negative (Negative); HCV AB Non Reactive (Non Reactive); HEP A AB, IGM Negative (Negative); HEP B CORE AB, IGM Negative (Negative)
--- NOTE | 2023-02-12 19:31 | NUR ---
SUMMARY- PT A/O X3, FORTGETFUL TO USE THE CALL LIGHT. GETS UP TO BATHROOM, MILDLY UNSTEADY GAIT, SET OFF BED ALARM MULT TIMES WHEN HE GETS UP TO TO THE BATHROOM. PT HAD DIALYSIS TODAY FOR THE FIRST TIME. HD TOOK OFF 500 ML. NOTED HIS BP WAS MARGIONALLY LOW THIS PM. PT HAD A BM THIS PM AFTER LAXATIVES GIVEN. PLAN FOR PT TO HAVE DIALYSIS TOMORROW. PT TOLERATING FOOD AND FLUIDS. EATS ABOUT 50% MEALS. CONTINENT OF B/B. IN TO VISIT PT TODAY. WILL REPORT TO NOC RN.
[2023-02-13] VITALS (19 sets, daily range): BP systolic 104–162; BP diastolic 53–79
--- NOTE | 2023-02-13 04:46 | NUR ---
SHIFT SUMMARY 77 YR M ADMITTED ON 02/04/23 FOR CKD. FULL CODE. NO ACUTE CHANGES THIS SHIFT. PT DOES NOT USE CALL LIGHT WHEN GETTING UP TO BATHROOM DESPITE MULTIPLE REQUESTS TO DO SO. HE GETS ANNOYED WHEN THE BED ALARM GOES OFF STATING THE HE IS VERY CAPABLE OF GOING TO THE BATHROOM BY HIMSELF. HE IS STILL A BIT UNSTEADY ON HIS FEET SO I ADVISED THAT STAND BY ASSIST IS FOR HIS PROTECTION AGAINST FALLING. NO C/O PAIN OR DISCOMFORT THIS SHIFT AND PT HAS SLEPT FOR MOST OF THE NIGHT.
[2023-02-13 06:01] LABS: Hematocrit 27.5 % (37.0-53.0); Hemoglobin 8.5 g/dL (13.5-17.5)
[2023-02-13 06:21] LABS: Albumin, Blood 2.1 g/dL (3.4-5.0); Anion Gap 9 mmol/L (6-16); Blood Urea Nitrogen 52 mg/dL (8-24); Bun/Creatinine Ratio 8.7 (12.0-20.0); CO2, Blood 26 mmol/L (21-32); Calcium, Blood 7.1 mg/dL (8.5-10.1); Chloride, Blood 108 mmol/L (98-108); Creatinine, Blood 5.96 mg/dL (0.60-1.20); Glomerular Filtration Rate 9 (60-); Glucose, Blood 113 mg/dL (70-99); Magnesium, Blood 1.5 mg/dL (1.6-2.4); Phosphorus, Blood 4.4 mg/dL (2.5-4.9); Potassium, Blood 4.3 mmol/L (3.5-5.5); Sodium, Blood 143 mmol/L (136-145)
--- NOTE | 2023-02-13 09:04 | NUR ---
PT TO DIALYSIS. RECEIVED PHONE CALL FROM LAB QUERYING ORDER FOR ACUTE HEPATITIS PANEL WHICH WAS COMPLETED ON 02/11. LAB STATED THEY HAD DISCUSSED WITH THEIR THREE DIMENSIONAL MAP MODELER WHO QUESTIONED NECESSITY OF LAB BEING REPEATED WITHIN TWO DAYS. WILL DISCUSS WITH ORDERING PROVIDER.
--- NOTE | 2023-02-13 09:30 | NUR ---
CALLED DR. ROSA'S OFFICE AND DISCUSSED WITH STAFF WHO STATED PT SHOULD NOT NEED A REPEAT ACUTE HEPATITIS PANEL. UPDATED LAB.
--- NOTE | 2023-02-13 19:25 | NUR ---
SHIFT SUMMARY: ERASTO IS A&OX2-3. VSS, NO ACUTE EVENTS THIS SHIFT. BED ALARM IN PLACE, PT FORGETS TO CALL STAFF PRIOR TO GETTING OUT OF BED. HE DID REPORT NECK PAIN FOR WHICH HE STATED THE K-PAD PROVIDED RELIEF. HE IS A STANDBY ASSIST TO THE BATHROOM. PERMACATH IN PLACE TO RU CHEST WALL. HE IS TOLERATING PO INTAKE WELL, AC/HS BLOOD SUGAR CHECKS. ATTENDS IN PLACE, PT REPORTS HAVING HAD A BOWEL MOVEMENT TODAY. HE IS LYING IN BED WITH THE CALL LIGHT IN REACH. REPORT WAS GIVEN TO TEACHER DRAMA RN.
[2023-02-14] VITALS (16 sets, daily range): BP systolic 109–163; BP diastolic 57–75
[2023-02-14 00:10] LABS: HBSAG SCREEN Negative (Negative); HCV AB Non Reactive (Non Reactive); HEP A AB, IGM Negative (Negative); HEP B CORE AB, IGM Negative (Negative)
--- NOTE | 2023-02-14 04:47 | NUR ---
SHIFT SUMMARY. PT HAS BEEN IRRITABLE THROUGHOUT SHIFT. IMPULSIVE, BED ALARM HAS BEEN ON THROUGHOUT SHIFT AND IS SOMEWHAT FREQUENTLY ACTIVATED PT DOES NOT USE CALL LIGHT TO CALL FOR ASSISTANCE. PT BECOMES VERY IRRITATED WITH BED ALARM BUT REMAINS SOMEWHAT UNSTEADY ON FEET FOR TRANSFER. 1-PERSON ASSIST. NO PAIN REPORTED THIS SHIFT. ON SHIFT ASSESSMENT AND MED PASS, PT BECAME VERY IRRITATED HE WAS CONVINCED HE HAD ALREADY TAKEN HIS 2100 MEDICATIONS. INFORMED THAT HE HAD IN FACT NOT TAKEN THESE MEDICATIONS YET AND EDUCATED ON IMPORTANCE OF MEDICATIONS BUT PT WAS INCREASINGLY AGITATED AND REFUSED MEDICATIONS WELL NURSING ASSESSMENT. WOULD NOT ANSWER ORIENTATION QUESTIONS PAST TELLING ME HIS NAME/. HAS REMAINED SOMEWHAT IRRITATED THROUGHOUT SHIFT DUE TO BED ALARM BUT ALLOWS ME TO ASSIST HIM WITH TRANSFERS. HX OF DEMENTIA. PT HAS SLEPT THROUGH MOST OF SHIFT DESPITE THIS. CONTINENT. BED LOCKED IN LOWEST POSITION. CALL LIGHT LEFT WITHIN REACH. BED ALARM REMAINS ACTIVE.
[2023-02-14 06:00] LABS: Hematocrit 28.8 % (37.0-53.0); Hemoglobin 8.9 g/dL (13.5-17.5)
[2023-02-14 06:30] LABS: Albumin, Blood 2.3 g/dL (3.4-5.0); Anion Gap 5 mmol/L (6-16); Blood Urea Nitrogen 34 mg/dL (8-24); Bun/Creatinine Ratio 7.4 (12.0-20.0); CO2, Blood 30 mmol/L (21-32); Calcium, Blood 7.7 mg/dL (8.5-10.1); Chloride, Blood 105 mmol/L (98-108); Glomerular Filtration Rate 12 (60-); Glucose, Blood 129 mg/dL (70-99); Magnesium, Blood 1.6 mg/dL (1.6-2.4); Phosphorus, Blood 3.3 mg/dL (2.5-4.9); Potassium, Blood 3.9 mmol/L (3.5-5.5); Sodium, Blood 140 mmol/L (136-145)
--- NOTE | 2023-02-14 19:25 | NUR ---
SHIFT SUMMARY PT IS ALERT AND ORIENTED X2. CALM AND COOPERATIVE. IMPULSIVE, DOES NOT USE CALL LIGHT. SBA WITH FWW. DIALYSIS TODAY. PER DIALYSIS NURSE PT WILL HAVE DIALYSIS INTAKE FRIDAY 3PM, WILL BE DIALYZED FRI, FRI, FRI, AT 0545. DISCUSSED PT SPOUSE CONCERN OF DRIVING IN THE DARK. CELLULAR TOWER CLIMBER WILL NOTIFY APPROPRIATE REPUBLICAN. NO ACUTE CHANGES. BED IS IN THE LOWEST POSITION WITH CALL LIGHT IN REACH.
[2023-02-15 03:29] VITALS: BP 131/62
--- NOTE | 2023-02-15 04:07 | NUR ---
SHIFT SUMMARY. PT HAS BEEN AOX2, PLEASANT, COOPERATIVE WITH CARE THROUGHOUT SHIFT THUS FAR. MUCH MORE AGREEABLE AND PLEASANT THAN PREVIOUS SHIFT WITH THIS NURSE. DOES NOT USE CALL LIGHT, BED ALARM REMAINS ACTIVE. SOMEWHAT IMPULSIVELY OOB. CONTINENT. STEADY SBA TRANSFER TO BATHROOM. NO PAIN REPORTED THIS SHIFT. PT HAS BEEN ASLEEP THROUGH MOST OF SHIFT AFTER MED PASS AND SHIFT ASSESSMENT. SATTING WELL ON ROOM AIR. BED LOCKED IN LOWEST POSITION. CALL LIGHT LEFT WITHIN REACH.
[2023-02-15 06:10] LABS: Hematocrit 29.4 % (37.0-53.0); Hemoglobin 9.1 g/dL (13.5-17.5)
[2023-02-15 06:53] LABS: Albumin, Blood 2.5 g/dL (3.4-5.0); Anion Gap 5 mmol/L (6-16); Blood Urea Nitrogen 22 mg/dL (8-24); Bun/Creatinine Ratio 5.8 (12.0-20.0); CO2, Blood 32 mmol/L (21-32); Calcium, Blood 8.3 mg/dL (8.5-10.1); Chloride, Blood 103 mmol/L (98-108); Creatinine, Blood 3.77 mg/dL (0.60-1.20); Glomerular Filtration Rate 16 (60-); Glucose, Blood 134 mg/dL (70-99); Magnesium, Blood 1.8 mg/dL (1.6-2.4); Phosphorus, Blood 3.2 mg/dL (2.5-4.9); Potassium, Blood 3.5 mmol/L (3.5-5.5); Sodium, Blood 140 mmol/L (136-145)
[2023-02-15 07:33] VITALS: BP 148/72
--- NOTE | 2023-02-15 16:02 | NUR ---
SHIFT SUMMARY NO ACUTE CHANGES THIS SHIFT. PT HAS BEEN PLEASANTLY CONFUSED ALERT AND ORIENTED X2. NO DIALYSIS TODAY.
[2023-02-15 20:36] VITALS: BP 125/64
--- NOTE | 2023-02-15 22:30 | NUR ---
PT STATUS PT ANGRY THAT I WOKE HIM UP FROM HIS NAP. REFUSED MEDICATIONS.
[2023-02-16 04:18] VITALS: BP 145/70
--- NOTE | 2023-02-16 04:20 | NUR ---
SHIFT SUMMARY ADMITTED FOR CKD. FULL CODE. HOPEFUL FOR DC ON FRIDAY FOLLOWING DIALYSIS. DIALYSIS PORT IN RIGHT CHEST WALL. ACHS CBG'S - HIGH SS. STANDBY ASSIST - BRP. DR. ROSA IS RENAL CONSULT. HE DOES HAVE DEMENTIA AND IS IMPULSIVE. HE DID REFUSE HIS NIGHTIME MEDICATIONS THIS SHIFT. HE IS CONTINENT. RENAL DIET. HE IS ON RA. HE DENIES PAIN.
[2023-02-16 05:22] LABS: Hematocrit 27.9 % (37.0-53.0); Hemoglobin 8.8 g/dL (13.5-17.5)
[2023-02-16 05:54] LABS: Albumin, Blood 2.5 g/dL (3.4-5.0); Anion Gap 7 mmol/L (6-16); Blood Urea Nitrogen 33 mg/dL (8-24); Bun/Creatinine Ratio 6.5 (12.0-20.0); CO2, Blood 29 mmol/L (21-32); Calcium, Blood 7.9 mg/dL (8.5-10.1); Chloride, Blood 106 mmol/L (98-108); Glomerular Filtration Rate 11 (60-); Glucose, Blood 149 mg/dL (70-99); Magnesium, Blood 1.7 mg/dL (1.6-2.4); Phosphorus, Blood 3.3 mg/dL (2.5-4.9); Potassium, Blood 3.7 mmol/L (3.5-5.5); Sodium, Blood 142 mmol/L (136-145)
[2023-02-16 07:31] VITALS: BP 154/89
[2023-02-16 16:12] VITALS: BP 109/58
--- NOTE | 2023-02-16 17:17 | NUR ---
SHIFT SUMMARY PT AOX2-3, CONFUSED AT TIMES. NO COMPLAINTS FROM THE PT THIS SHIFT. HE DOES NOT CALL MUCH AT ALL AND HAS HAD NO ISSUES. HE IS TO HAVE DIALYSIS TOMORROW AND GO HOME SHORTLY AFTER. HIS HAS BEEN AT THE THIS SHIFT. FIRE SAFETY PROTOCOLS AND PROCEDURES MAINTAINED. CALL LIGHT WITHIN REACH, BED IN THE LOWEST POSITION. WILL REPORT TO ONCOMING NURSE.
[2023-02-16 20:54] VITALS: BP 125/68
[2023-02-17] VITALS (12 sets, daily range): BP systolic 135–164; BP diastolic 64–80
--- NOTE | 2023-02-17 04:25 | NUR ---
SHIFT SUMMARY PATIENT HAD NO ACUTE CHANGES. AXOX 2-3 WITH CONFUSION AT TIMES. BSA TO BR. PIV REMAINS INTACT. CBG 233. VSS/AFEBRILE. COOPERATIVE WITH CARE. CALL LIGHT IN REACH. BED IN LOWEST POSITION. WILL CONTINUE TO MONITOR UNTIL DAY SHIFT NURSE ASSUMES CARE.
[2023-02-17 06:37] LABS: Hemoglobin 9.6 g/dL (13.5-17.5)
[2023-02-17 06:53] LABS: Albumin, Blood 2.8 g/dL (3.4-5.0); Anion Gap 5 mmol/L (6-16); Blood Urea Nitrogen 43 mg/dL (8-24); Bun/Creatinine Ratio 6.9 (12.0-20.0); CO2, Blood 30 mmol/L (21-32); Calcium, Blood 8.2 mg/dL (8.5-10.1); Chloride, Blood 104 mmol/L (98-108); Creatinine, Blood 6.23 mg/dL (0.60-1.20); Glomerular Filtration Rate 9 (60-); Glucose, Blood 160 mg/dL (70-99); Phosphorus, Blood 4.3 mg/dL (2.5-4.9); Potassium, Blood 3.6 mmol/L (3.5-5.5); Sodium, Blood 139 mmol/L (136-145)
[2023-02-17] MEDS ORDERED: FAMO20 PO (11:13)
[2023-02-17] MEDS ORDERED: Calcium Acetat667 MG PO (11:13)
[2023-02-17] MEDS ORDERED: NIFE60ER PO (11:14)
[2023-02-17] MEDS ORDERED: VITAMIN B COMP1 EAC1 PO (11:15)
--- NOTE | 2023-02-17 14:01 | NUR ---
PT DISCHARGED FROM THE UNIT. IV REMOVED. DISCHARGE INSTRUCTIONS REVIEWED. MEDICATIONS FAXED TO [facility]. INSTRUCTED ON FOLLOW UP APTS. PT LEFT UNIT VIA WHEEL CHAIR WITH .
== END 2023-02-17 14:17 | disposition home or self-care (01) | DRG 674 ==
LOC: ER 11:32 → MEDS 14:15 → ENPENDDIS 02-17 10:28 → MEDS 02-17 14:17
PROVIDERS: Internal Medicine; Internal Medicine Nephrology; Student in an Organized Health Care Education/Training Program; ADMIT Family Medicine
PROC: 30233N1 Transfusion of Nonautologous Red Blood Cells into Peripheral Vein, Percutaneous Approach (ICD-10-PCS; 2023-02-10)
PROC: 0JH63XZ Insertion of Tunneled Vascular Access Device into Chest Subcutaneous Tissue and Fascia, Percutaneous Approach (ICD-10-PCS; principal; 2023-02-11)
PROC: 02HV33Z Insertion of Infusion Device into Superior Vena Cava, Percutaneous Approach (ICD-10-PCS; 2023-02-11)
PROC: 5A1D70Z Performance of Urinary Filtration, Intermittent, Less than 6 Hours Per Day (ICD-10-PCS; 2023-02-12)
DX: N17.9 Acute kidney failure, unspecified (principal); E87.0 Hyperosmolality and hypernatremia; I12.0 Hypertensive chronic kidney disease with stage 5 chronic kidney disease or end stage renal disease; E87.20 Acidosis, unspecified; N18.6 End stage renal disease; N25.81 Secondary hyperparathyroidism of renal origin; E11.22 Type 2 diabetes mellitus with diabetic chronic kidney disease; F03.90 Unspecified dementia, unspecified severity, without behavioral disturbance, psychotic disturbance, mood disturbance, and anxiety; S01.01XA Laceration without foreign body of scalp, initial encounter; X58.XXXA Exposure to other specified factors, initial encounter; E78.5 Hyperlipidemia, unspecified; H26.9 Unspecified cataract; D63.1 Anemia in chronic kidney disease; E86.9 Volume depletion, unspecified; E87.5 Hyperkalemia; E88.09 Other disorders of plasma-protein metabolism, not elsewhere classified; Z79.84 Long term (current) use of oral hypoglycemic drugs; Z79.899 Other long term (current) drug therapy; Z99.2 Dependence on renal dialysis
CPT/HCPCS: 36415; 36430; 36558; 71045; 76770; 76937; 77001; 80053; 80069; 80074; 82947; 83735; 84132; 85014; 85018; 85025; 86850; 86900; 86901; 86923; 96360; 96361; 97129; 97165; 97530; 97535; 99152; 99153; 99284-25; A9270; C1750; C1769; C1894; J0881; J1644; J2250; J3010; J3475; J7030; J7040; J7050; J7070; P9016

== ENCOUNTER 2023-04-05 07:45 | Inpatient (IN) | payer MEDICARE, OTHER ==
[~2023-04-05] VITALS: Ht 180.3 cm; Wt 71.5 kg
[~2023-04-05 07:45] MED LIST changes: +Calcium Acetat667 MG PO; +FAMO20 PO; +GLUCOPHAGE1000 M1 PO; +NIFE60ER PO; +VITAMIN B COMP1 EAC1 PO
[2023-04-05 09:02] LABS: BASOPHILS ABSOLUTE AUTO 0.04 K/mm3 (0.00-0.23); BASOPHILS PERCENT AUTO 0 % (0-2); EOSINOPHILS ABSOLUTE AUTO 0.02 K/mm3 (0.00-0.68); EOSINOPHILS PERCENT AUTO 0 % (0-6); Hematocrit 31.5 % (37.0-53.0); Hemoglobin 10.3 g/dL (13.5-17.5); IMMATURE GRAN ABSOLUTE AUTO 0.24 K/mm3 (0.00-0.10); IMMATURE GRAN PERCENT AUTO 1 % (0-1); LYMPHOCYTES ABSOLUTE AUTO 0.71 K/mm3 (0.84-5.20); LYMPHOCYTES PERCENT AUTO 3 % (21-46); MONOCYTES ABSOLUTE AUTO 0.32 K/mm3 (0.16-1.47); MONOCYTES PERCENT AUTO 2 % (4-13); Mean Corpuscular HGB 30.7 pg (26.0-34.0); Mean Corpuscular HGB Conc 32.7 g/dL (31.5-36.5); Mean Corpuscular Volume 94 fL (80-100); Mean Platelet Volume 10.1 fL (9.1-12.4); NEUTROPHILS PERCENT AUTO 94 % (41-73); Platelet Count 199 K/mm3 (150-400); RDW Coefficient Variation 14.4 % (11.7-14.2); Red Blood Cell Count 3.35 M/mm3 (4.30-5.90); White Blood Cell Count 21.03 K/mm3 (4.00-11.30)
[2023-04-05 09:10] LABS: Source, Urine Straight Cath
[2023-04-05 09:13] LABS: Appearance, Urine Clear (Clear); Bilirubin, Urine Neg (Neg); Blood, Urine 2+ (Neg); Color, Urine Yellow (P-Yellow); Glucose Qualitative, Urine 4+ (Neg); Ketones, Urine Neg (Neg); Leukocyte Esterase, Urine Neg (Neg); Nitrite, Urine Neg (Neg); Protein, Urine 4+ (Neg); Urobilinogen, Urine NORM (Normal)
[2023-04-05 09:20] LABS: Hyaline Casts 0-2 /lpf (0-2)
[2023-04-05 09:23] LABS: Bacteria Rare /hpf; Red Blood Cells, Urine 0-2 /hpf (0-2); Squamous Epithelial Cells Rare /hpf (Few)
[2023-04-05 09:24] LABS: Renal Epithelial Rare /hpf (0-Rare)
[2023-04-05 10:04] LABS: Albumin, Blood 3.1 g/dL (3.4-5.0); Albumin/Globulin Ratio 0.9 (0.8-1.8); Beta-hydroxybutyrate 1.3 mg/dL (0.2-2.8); Bilirubin, Total 0.5 mg/dL (0.1-1.0); Calcium, Blood 8.8 mg/dL (8.5-10.1); Creatinine, Blood 4.48 mg/dL (0.60-1.20); Globulin, Blood 3.6 g/dL (2.2-4.0); Potassium, Blood 4.1 mmol/L (3.5-5.5); Total Protein, Blood 6.7 g/dL (6.4-8.2)
[2023-04-05 10:15] LABS: Base Excess Venous -2.5 mmol/L; Bicarbonate Venous 22.9 mmol/L (24.0-30.0); PCO2 Venous 29.7 mmHg (38-42); pH Blood Venous 7.46 (7.34-7.37)
[2023-04-05 10:26] LABS: Influenza A, PCR NEGATIVE (NEGATIVE); Influenza B, PCR NEGATIVE (NEGATIVE); Resp Syncytial Virus, PCR NEGATIVE (NEGATIVE); SARS-Cov-2 (COVID-19) PCR, MMC NEGATIVE (NEGATIVE)
[2023-04-05 14:49] VITALS: BP 153/70
--- NOTE | 2023-04-05 17:18 | NUR ---
ADMISSION NOTE: PATIENT ARRIVES IN ROOM AT AROUND 1430 VIA GURNEY FROM ER c DX'S OF FALL. PATIENT IS AWAKE, ALERT AND ORIENTED TO SELF ONLY. CONFUSED AND VERY SLOW TO RESPOND. NO TELE. PATIENT DENIES CP/PRESSURE, N/V AND SOB. PATIENT REPORTS PAIN TO L HIP c REPOSITIONING. NOTED SKIN TEAR TO L FOREAMS FROM FALLS AT HOME AND BRUISING SCATTERED T/O. MIPELEX DRESSING PLACED TO L FOREARM. PER DENNYS SON AT BEDSIDE, "PATIENT HAS BEEN FALLING A LOT AT HOME." SKIN ASSESSMENT c 2 RN VERIFIED COMPLETED. PATIENT IS DNR c PURPLE BRACELET PLACED TO R WRIST. VITAL SIGNS REVIEWED. PIV TO L/R WRIST SALINE LOCKED. BED ALARM ON FOR SAFETY. CALL LIGHT IN REACH.
[2023-04-05 21:26] VITALS: BP 123/66
--- NOTE | 2023-04-06 04:20 | NUR ---
SHIFT SUMMARY EVANGELIST WAS SLEEPING AT START OF SHIFT, ALERT TO SELF, HE WAS CALM AND COOPERATIVE ALL SHIFT. NO ACUTE EVENTS TONIGHT. PT POSITION CHANGED REGULARLY T/O THE NIGHT. HE SLEPT MOST OF THE NIGHT AND WAS CONTINENT W/ URINAL. PT DOES NOT USE THE CALL LIGHT APPROPRIATELY. HE IS CURRENTLY SLEEPING IN BED AT A LOW POSITION, WITH THE BED ALARM PLACED.
[2023-04-06 04:48] VITALS: BP 144/73
[2023-04-06 07:19] VITALS: BP 138/75
--- NOTE | 2023-04-06 12:48 | NUR ---
Pt's family has decided to take the pt home with hospice services. [facility] has availability tomorrow, and family is pleased with this. Packet sent to [facility] including phone number so they can reach out if need be in the meammtime. Pt appears to be resting quietly at this time. Dr. Pierre aware. Palliative Care to remain involved.
--- NOTE | 2023-04-06 15:17 | NUR ---
SHIFT SUMMARY: PATIENT IS AWAKE, ALERT AND ORIENTED TO SELF ONLY. CONFUSED, AND SLOW TO RESPOND. PATIENT REPORTS PAIN 5-6/10 TO L HIP, MEDICATED c PO TYLENOL c GOOD EFFECT. PATIENT IS CONTINENCE OF BOWELS AND BLADDER, USES URINAL c ASSISTANCE AND UP TO BSC c 1 ASSIST. PATIENT WAS PLACED ON COMFORT CARE MEASURE AROUND 1130. PATIENT HAS BEEN SLEEPING ON AND OFF T/O SHIFT. DENIES CP/PRESSURE, SOB, N/V AND DIZZINESS. PATIENT IS PLEASANT AND COOPERATIVE c CARE. PIV TO L WRIST SALINE LOCKED. BED ALARM ON FOR SAFETY. CALL LIGHT IN REACH.
--- NOTE | 2023-04-06 16:30 | NUR ---
Pt is a 77 y.o with history significant for Type 2 DM, dementia and CKD on dialysis. The pt has had a recent increased fall history as well as recent dramatic decline in cognitive and functional status. Pt's reports pt has stopped wanting to go to Dialysis "a while ago", and it's difficult to get him there, 3 times a week. Due to the major changes, the family supports pt going to comfort care, and taking him home. [facility] has an opening tomorrow morning. Pt to d/c at 10am in morning. Family had some hospice questions that I answered for them. They v/u and plan is to return pt home in the am.
--- NOTE | 2023-04-06 17:15 | NUR ---
DISCHARGE TRANSPORT [facility] TRANSPORT SET UP PER PALLIATIVE CARE REQUEST FOR 1030AM PICKUP ON 04/07/23 AND BILLED TO [facility].
[2023-04-06] MEDS ORDERED: ROSU10TA PO (20:41)
[2023-04-06] MEDS ORDERED: ADALAT CC60 M1 PO (20:42)
--- NOTE | 2023-04-07 06:02 | NUR ---
SUMMARY: PT REMAINS ON COMFORT CARE AND IS PLEASANT AND COOPERATIVE W/CARE. BED ALARM IS ON FOR CONFUSION, FALL RISK AND IMPULSIVITY W/REMINDERS PROVIDED PRN. HE IS SBA W/FWW TO USE URINAL OR TOILET D/T UNSTEADY GAIT AND WEAKNESS. HE'S DENIED PAIN AND ALL OTHER COMPLAINTS. NO ACUTE CHANGES. PLAN IS FOR D/C TODAY W/[facility] TRANSPORT PICKUP SCHEDULED FOR 1030. RAKESH AND REPORT TO DAY RN.
[2023-04-07] MEDS ORDERED: Acetaminophen650 M1 PO (10:42)
[2023-04-07] MEDS ORDERED: Ativan1 MG PO (10:44)
[2023-04-07] MEDS ORDERED: MORP20L PO (10:45)
[2023-04-07] MEDS ORDERED: ONDA4ODT MM (10:47)
--- NOTE | 2023-04-07 11:04 | NUR ---
PT AWAKE AT START OF SHIFT, GETTING OUT OF BED TO TURN OFF LIGHTS. ASSISTED PT WITH THE LIGHTS. PT LATER UP TO EOB TO EAT BREAKFAST. PT THEN TO CHAIR AT BS UNTIL TRANSPORT HERE TO TAKE HIM HOME ON HOSPICE. PT UP WITH 1P SBA USING FWW TO GET INTO W/C TX. BELONGINGS SENT WITH PT.
== END 2023-04-07 10:34 | disposition hospice, home (50) | DRG 308 ==
LOC: ER 07:45 → MEDS 07:46
PROVIDERS: Emergency Medicine; ADMIT Family Medicine
DX: I48.91 Unspecified atrial fibrillation (principal); N18.6 End stage renal disease; I12.0 Hypertensive chronic kidney disease with stage 5 chronic kidney disease or end stage renal disease; I48.92 Unspecified atrial flutter; I44.30 Unspecified atrioventricular block; Z51.5 Encounter for palliative care; Z66 Do not resuscitate; H26.9 Unspecified cataract; E11.22 Type 2 diabetes mellitus with diabetic chronic kidney disease; F03.90 Unspecified dementia, unspecified severity, without behavioral disturbance, psychotic disturbance, mood disturbance, and anxiety; R29.6 Repeated falls; B95.8 Unspecified staphylococcus as the cause of diseases classified elsewhere; M25.552 Pain in left hip; W18.30XA Fall on same level, unspecified, initial encounter; Z20.822 Contact with and (suspected) exposure to COVID-19; Z99.2 Dependence on renal dialysis; Z79.899 Other long term (current) drug therapy
CPT/HCPCS: 0241U; 36415; 51701; 71045; 73502; 80053; 81001; 82010; 82803; 83605; 84145; 84484; 85025; 87040; 87077; 87186; 93005; 93010; 96361; 96365; 96372; 96375; 99285-25; A9270; G0378; J0696; J1644; J3370; J7030; J7050